=== PATIENT | male | born 1975 | race Caucasian/White ===

== ENCOUNTER 2022-05-04 07:14 | Outpatient (REF) | payer BC, SELFPAY ==
[2022-05-04 11:23] LABS: MANUAL DIFF FLAG NO
[2022-05-04 11:37] LABS: Appearance Urine Clear; Color Urine Yellow; Glucose Urine UA Negative (Negative); Leukocyte Esterase Urine Trace (Negative); Nitrite Urine Negative (Negative); PH 5.5 (5.0-9.0); UMIC TRIGGER UACC YES; Urine Blood Negative (Negative); Urine Ketones Negative (Negative); Urine Protein Negative (Neg-Trace)
[2022-05-04 11:40] LABS: Basophils Absolute Auto 0.1 X10*3/uL (0.0-0.2); Basophils Percent Auto 0.8 % (0-2); Eosinophils Absolute Auto 0.2 X10*3/uL (0.0-0.4); Eosinophils Percent Auto 2.5 % (0-4); Hematocrit 49.1 % (42.0-52.0); Hemoglobin 16.3 g/dl (14.0-18.0); Imm Gran Abs Auto 0.03 X10*3/uL (0.00-0.03); Imm Gran Pct Auto 0.4 % (0.0-0.4); Lymphocytes Absolute Auto 3.1 X10*3/uL (1.2-4.9); Lymphocytes Percent Auto 40.8 % (20-40); Mean Corpuscular HGB Conc 33.2 g/dl (31.0-36.0); Mean Corpuscular Volume 90.4 fL (80.0-98.0); Mean Platelet Volume 10.7 fL (9.4-12.4); Monocytes Absolute Auto 0.7 X10*3/uL (0.1-1.2); Monocytes Percent Auto 8.5 % (2-11); Neutrophils Absolute Auto 3.6 x10*3/uL (2.0-8.3); Platelet Count 202 X10*3/uL (160-400); Red Blood Count 5.43 X10*6/uL (4.60-5.80); Red Cell Distribution Width 12.5 % (11.0-16.0); White Blood Count 7.7 X10*3/uL (4.8-10.8)
[2022-05-04 11:43] LABS: Bacteria Urine None Seen (None Seen); Hyaline Casts Urine 0-2 /LPF (0-2); RBC Urine 0-2 /HPF (0-2); Squamous Epithelial Cell Urine 0-2 /HPF (0-2); WBC Urine 0-5 /HPF (0-5)
[2022-05-04 12:37] LABS: Alanine Aminotransferase 37 U/L (0-40); Albumin Level 4.7 g/dL (3.5-5.0); Alkaline Phosphatase 55 U/L (39-117); Anion Gap 13 (12-20); Aspartate Amino Transferase 26 U/L (5-37); Bilirubin Total 1.1 mg/dL (0.0-1.0); Blood Urea Nitrogen 13 mg/dL (9-16); Calcium 9.7 mg/dL (8.4-10.2); Carbon Dioxide 29 mmol/L (22-29); Chloride 101 mmol/L (96-108); Cholesterol 206 mg/dL; Estimated Glomerular Filt Rate > 60; Glucose Fasting 90 mg/dL (60-99); Glucose Random 88 mg/dL (60-115); HDL Cholesterol 39 mg/dL; LDL Cholesterol Calculated 130 mg/dl; Potassium 3.9 mmol/L (3.3-5.1); Prostate Specific Antigen Scr 0.31 ng/mL (<0.05-4.0); Sodium 139 mmol/L (135-145); TSH reflex Free T4 1.83 uIU/mL (0.32-4.0); Triglycerides 187 mg/dL; Vitamin D 25-OH Total 41.5 ng/mL (>30)
== END 2022-05-04 07:15 | disposition home or self-care (01) ==
LOC: HO.HMGCLDS 07:14
PROVIDERS: Absent Provider Nurse Practitioner; PCP Internal Medicine; Visit Provider Internal Medicine
DX: Z00.00 Encounter for general adult medical examination without abnormal findings (principal); Z12.5 Encounter for screening for malignant neoplasm of prostate; I10 Essential (primary) hypertension; E55.9 Vitamin D deficiency, unspecified
CPT/HCPCS: 36415; 80053; 80061; 81001; 82306; 84153; 84443; 85025

== ENCOUNTER 2022-09-19 06:43 | Day surgery (SDC) | payer BC, SELFPAY ==
[2022-08-23 12:55] VITALS: BMI 34.5
[2022-09-14 10:18] VITALS: BMI 32.7
--- NOTE | 2022-09-18 13:14 | HO.ANESPROP2 ---
Documented by User: Julia Vasquez NP 09/18/22 13:17 HPI - Anesthesia Eval Consult details Narrative: 47yo M for Colonoscopy PMFSH Active Problems Active Problems: All Active Problems (Updated 09/14/22 @ 08:31 by Porsche Jean, YEFRI) Benign essential hypertension (Acute) Obstructive sleep apnea (Acute) Annual physical exam (Acute) Allergic rhinitis (Acute) Osteoarthritis of knees, bilateral (Acute) Obesity (BMI 30-39.9) (Acute) Colon cancer screening (Acute) Pre-op examination (Acute) Mixed hyperlipidemia (Acute) Past Medical History Medical History (Updated 09/19/22 @ 07:05 by Rebekah Morrissey, YEFRI) Allergic rhinitis Benign essential hypertension Mixed hyperlipidemia LICHA on CPAP Family History Family History Father Myocardial infarction Mother Hypertension Cardiomyopathy Paroxysmal atrial fibrillation Anxiety Other No family history of mental disorder Surgical History Surgical History (Updated 09/19/22 @ 07:02 by Rebekah Morrissey RN) History of tympanoplasty of right ear Hx of skin graft Hx of tonsillectomy Social History Social History Housing: House Patient Tobacco Use Status: Never used Tobacco e-Cigarette/Vaping Use: Never Used Second Hand Smoke Exposure: No Current occupational status: employed Cognitive needs: No Hearing needs: No Vision needs: Yes Meds Allergies Allergy/AdvReac Type Severity Reaction Status Date / Time No Known Allergies Allergy Verified 09/19/22 07:02 Home Medications Medication Instructions Recorded Confirmed Last Taken Type Multi Vitamin 1 tab-cap PO DAILY 09/14/22 09/14/22 Unknown History Exam Exam Date and Time: September 18, 2022 1314 Height,Weight and Vital Signs: Height 6 ft 2 in Weight 115.666 kg Pertinent Lab Results Pertinent Lab Results: Laboratory Tests 05/04/22 05/04/22 07:20 07:20 WBC 7.7 Hgb 16.3 Hct 49.1 Plt Count 202 Sodium 139 Potassium 3.9 Chloride 101 Carbon Dioxide 29 BUN 13 Creatinine 0.95 Assessment and Plan Assessment Anesthesia Assessment: Chart Reviewed Documented by User: Rivera Yanes MD 09/19/22 17:52 [facility] Past Medical History Medical History (Updated 09/19/22 @ 07:05 by Rebekah Morrissey RN) Allergic rhinitis Benign essential hypertension Mixed hyperlipidemia LICHA on CPAP Functional capacity: independent ambulation Family History Family History Father Myocardial infarction Mother Hypertension Cardiomyopathy Paroxysmal atrial fibrillation Anxiety Other No family history of mental disorder Family history of problems with anesthesia: No Surgical History Surgical History (Updated 09/19/22 @ 07:02 by Rebekah Morrissey RN) History of tympanoplasty of right ear Hx of skin graft Hx of tonsillectomy History of Problems with Anesthesia: No Social History Social History Housing: House Patient Tobacco Use Status: Never used Tobacco e-Cigarette/Vaping Use: Never Used Second Hand Smoke Exposure: No Current occupational status: employed Cognitive needs: No Hearing needs: No Vision needs: Yes Meds Allergies Allergy/AdvReac Type Severity Reaction Status Date / Time No Known Allergies Allergy Verified 09/19/22 07:02 Home Medications Medication Instructions Recorded Confirmed Last Taken Type Multi Vitamin 1 tab-cap PO DAILY 09/14/22 09/14/22 Unknown History Exam Airway Mallampati Class: IV TM Dist: >3cm Neck ROM: Full Loose/Missing/Broken Teeth: Yes Assessment and Plan Assessment Anesthesia Assessment: Anesthesia Plan Discussed Final Anesthetic Review Family History of Problems with Anesthesia: No History of Problems with Anesthesia: No NPO: Yes ASA Class: II Final Preanesthetic Review: Meds/Allgs Chart Reviewed, Consent Obtained/Reviewed and Anes Risks/Benef Reviewed Patient Risk: Intermediate Procedure Risk: Intermediate Anesthetic Plan Anesthetic Plan: MAC: and Agree w/ Assess. and Plan Disposition: Standard PACU
--- NOTE | 2022-09-19 06:47 | MHC.SHP ---
Pre-Procedural Eval Section A Date of Service: 09/19/22 Section B Chief Complaint: Screening Relevant Family History (Specify if Yes): No Relevant Social History: None Present Medications: see Short Stay Collaborative assessment Medical History: Significant History (Obstructive sleep apnea Obesity Hypertension Allergic rhinitis Osteoarthritis of the knees) History of Previous Operations: Relevant previous surgery/procedure and date(s) (tonsils) Allergies: Allergies Allergy/AdvReac Type Severity Reaction Status Date / Time No Known Allergies Allergy Verified 05/05/22 09:41 Review of Systems Sugical H&P ROS: Negative: Constitution, Cardiovascular, Respiratory, Neurological, Psychiatric, Hem-Onc, Allergic/Immunologic, Gastrointestinal, Genitourinary, Musculoskeletal, Integumentary, Endocrine and Eyes/Ears/Nose/Throat Exam Surgical H&P Exam: Normal: HEENT, Normal: Heart, Normal: Lungs, Normal: Extremities, Normal: Abdomen, Normal: Skin and Normal: Neurological Plan Diagnosis/Plan: Unchanged I have reviewed the history and physical and performed a pertinent physical examination on my patient. No changes have occurred unless specified. Time Spent With Patient Time: Total time managing care of this patient today ____ minutes.
[2022-09-19 07:03] VITALS: BMI 32.7
[2022-09-19 07:08] VITALS: BP 152/92; PULSE 79; RESP 15; TEMP 36.3; O2SAT 96
[2022-09-19] MEDS: Lactated Ringers 1,000 ML 100 ML IVCONT (07:32)
--- NOTE | 2022-09-19 08:43 | W.PM.OPN ---
Operative Note Operative Note Date of Service: 09/19/22 Narrative: Operative Information Procedure Description: Colonoscopy Indication: screening colonoscopy Anesthesia: MAC COLONOSCOPY Instrument: Olympus variable stiffness ADULT scope 190L Colonoscopy Monitoring: Vital signs and clinical assessment, continuous EKG monitoring, Pulse oximetry, Carbon Dioxide monitoring and blood pressure monitoring were done throughout the procedure. Colon withdrawal time was 14 minutes. Procedure: The patient was placed in the left lateral decubitis position and pre-procedure medications were administered. After a digital rectal examination of the ano-rectum, the video colonoscope was inserted into the rectum and advanced through the colon to the cecum/TI. The colonoscope was slowly withdrawn in a retrograde panoramic fashion and the colon mucosa was carefully examined including a retroflexed view of the rectum. Findings and interventions are described below. Procedure Difficulty: easy Findings: Terminal Ileum-normal Cecum: 4-6 mm sessile polyp removed with cold forceps Ascending Colon: normal Transverse Colon -normal Descending Colon:normal Sigmoid Colon: normal Rectum: Retroflexion with small internal hemorrhoids, grade I, 10 mm sessile polyp in mid rectum removed with cold snare with x 2 clips applied for hemostasis Anorectum - normal Colon preparation: [place] Bowel Preparation Scale Right colon; 3 Transverse colon: 3 Left colon; 3 (0 = Unprepared colon segment with mucosa not seen due to solid stool that cannot be cleared. 1 = Portion of mucosa of the colon segment seen, but other areas of the colon segment not well seen due to staining, residual stool and/or opaque liquid. 2 = Minor amount of residual staining, small fragments of stool and/or opaque liquid, but mucosa of colon segment seen well. 3 = Entire mucosa of colon segment seen well with no residual staining, small fragments of stool or opaque liquid) Impression and Post Procedure Diagnosis: polyps internal hemorrhoids Plan: High fiber diet leaflet Avoid straining at stool, epsom salts and sitz bath, anusol supps or cream Repeat Colonoscopy in 5 years due to polyps or earlier if clinically indicated Above findings were reviewed with the patient and relevant handouts were provided if indicated.
[2022-09-19 09:29] VITALS: BP 111/63; PULSE 87; RESP 17; TEMP 36.3; O2SAT 95
[2022-09-19 09:44] VITALS: BP 120/65; PULSE 77; RESP 16; TEMP 36.3; O2SAT 96
== END 2022-09-19 10:04 | disposition home or self-care (01) ==
PROVIDERS: PCP Internal Medicine; Visit Provider Internal Medicine Gastroenterology
PROC: 0DJD8ZZ Inspection of Lower Intestinal Tract, Via Natural or Artificial Opening Endoscopic (ICD-10-PCS; CPT 45378; principal; 2022-09-19 08:30)
DX: Z12.11 Encounter for screening for malignant neoplasm of colon (principal); D12.0 Benign neoplasm of cecum; D12.8 Benign neoplasm of rectum; K64.0 First degree hemorrhoids; I10 Essential (primary) hypertension; E66.9 Obesity, unspecified; Z68.33 Body mass index [BMI] 33.0-33.9, adult; J30.9 Allergic rhinitis, unspecified; M17.0 Bilateral primary osteoarthritis of knee; G47.33 Obstructive sleep apnea (adult) (pediatric); Z99.89 Dependence on other enabling machines and devices; Z79.51 Long term (current) use of inhaled steroids; Z79.899 Other long term (current) drug therapy
CPT/HCPCS: 45385; 45380; 88305

== ENCOUNTER → 2022-09-27 08:16 | Outpatient (BNVA) | payer BC, SELFPAY | PROVIDERS: PCP Internal Medicine; Visit Provider Nurse Practitioner | DX: Z13.89 Encounter for screening for other disorder (principal) ==

== ENCOUNTER 2023-05-05 10:53 | Outpatient (REF) | payer BC, SELFPAY ==
[2023-05-05 12:51] LABS: MANUAL DIFF FLAG NO
[2023-05-05 12:56] LABS: Basophils Percent Auto 0.5 % (0-2); Eosinophils Absolute Auto 0.1 X10*3/uL (0.0-0.4); Eosinophils Percent Auto 1.1 % (0-4); Hematocrit 45.6 % (42.0-52.0); Hemoglobin 15.7 g/dl (14.0-18.0); Imm Gran Abs Auto 0.02 X10*3/uL (0.00-0.03); Imm Gran Pct Auto 0.3 % (0.0-0.4); Lymphocytes Absolute Auto 2.3 X10*3/uL (1.2-4.9); Lymphocytes Percent Auto 34.6 % (20-40); Mean Corpuscular HGB Conc 34.4 g/dl (31.0-36.0); Mean Corpuscular Hemoglobin 30.9 pg (27.0-33.0); Mean Corpuscular Volume 89.8 fL (80.0-98.0); Mean Platelet Volume 10.4 fL (9.4-12.4); Monocytes Absolute Auto 0.5 X10*3/uL (0.1-1.2); Monocytes Percent Auto 8.2 % (2-11); Neutrophils Absolute Auto 3.6 x10*3/uL (2.0-8.3); Neutrophils Percent Auto 55.3 % (45-73); Platelet Count 196 X10*3/uL (160-400); Red Blood Count 5.08 X10*6/uL (4.60-5.80); Red Cell Distribution Width 12.4 % (11.0-16.0); White Blood Count 6.5 X10*3/uL (4.8-10.8)
[2023-05-05 12:57] LABS: Appearance Urine Clear; Color Urine Yellow; Glucose Urine UA Negative (Negative); Leukocyte Esterase Urine Negative (Negative); Nitrite Urine Negative (Negative); Specific Gravity - Urine 1.025 (1.005-1.025); Urine Blood Negative (Negative); Urine Ketones Negative (Negative); Urine Protein Negative (Neg-Trace)
[2023-05-05 13:23] LABS: Alanine Aminotransferase 17 U/L (0-40); Albumin Level 4.4 g/dL (3.5-5.0); Alkaline Phosphatase 50 U/L (39-117); Anion Gap 11 (12-20); Aspartate Amino Transferase 16 U/L (5-37); Bilirubin Total 0.6 mg/dL (0.0-1.0); Blood Urea Nitrogen 17 mg/dL (9-16); Calcium 10.2 mg/dL (8.4-10.2); Carbon Dioxide 29 mmol/L (22-29); Chloride 106 mmol/L (96-108); Cholesterol 187 mg/dL (<200); Estimated Glomerular Filt Rate > 60; Glucose Fasting 92 mg/dL (60-99); HDL Cholesterol 42 mg/dL (>40); LDL Cholesterol Calculated 131 mg/dL (<100); Potassium 4.2 mmol/L (3.3-5.1); Sodium 142 mmol/L (135-145); Total Protein 6.9 g/dL (6.5-8.0); Triglycerides 74 mg/dL (<150)
[2023-05-05 13:38] LABS: TSH reflex Free T4 0.84 uIU/mL (0.32-4.0); Vitamin D 25-OH Total 90.2 ng/mL (>30)
== END 2023-05-05 10:54 | disposition home or self-care (01) ==
LOC: HO.HMGCLDS 10:53
PROVIDERS: PCP Internal Medicine; Visit Provider Internal Medicine
DX: E55.9 Vitamin D deficiency, unspecified (principal); E78.00 Pure hypercholesterolemia, unspecified; I10 Essential (primary) hypertension; R30.0 Dysuria
CPT/HCPCS: 36415; 80053; 80061; 81003; 82306; 84443; 85025

== ENCOUNTER 2023-05-09 08:40 | Outpatient (AMB) | payer BC, SELFPAY ==
[2023-05-09 08:43] VITALS: BP 124/80; PULSE 71; O2SAT 97; BMI 32.2
--- NOTE | 2023-05-09 08:43 | A.OFFPC_ITS ---
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 Accompanied by: Self / Same As Patient Allergies No Known Allergies Allergy (Verified 05/09/23 09:11) Medication List - Last Reconciled 05/09/23 by Adolph Weston MD fluticasone propionate 50 mcg/actuation 2 sprays intranasal DAILY PRN 30 days lisinopril-hydrochlorothiazide 20-12.5 mg 1 tab PO DAILY 90 days loratadine 10 mg PO DAILY PRN 90 days [Multi Vitamin 1 tab-cap PO DAILY] Tobacco use date assessed: 05/09/23 Dental Screening Dental Screen Date: 05/09/23 Did you have a dental visit in the last 12 months?: Yes Did you have a dental problem in the last 6 months where you did not have access to dental care?: No Was dental information given to patient?: Patient has dentist HPI HTN, hyperlipidemia, LICHA HPI Details Patient comes in today for his follow up visit States that he feels okay He denies any headaches or dizziness Denies any chest pains, no SOB No nausea/vomiting, no abdominal pain No change in bowel habits noted Would like to have his Rx sent in again to make sure that the pharmacy gets them as a 90-days' supply instead of a monthly Rx Had his follow up labs done a few days ago - to discuss his results [facility] Medical History LICHA on CPAP Mixed hyperlipidemia Allergic rhinitis Benign essential hypertension Surgical History Hx of skin graft Hx of tonsillectomy History of tympanoplasty of right ear Family History Father Myocardial infarction Mother Hypertension Cardiomyopathy Paroxysmal atrial fibrillation Anxiety Other No family history of mental disorder Social History Housing: House Patient Tobacco Use Status: Never used Tobacco e-Cigarette/Vaping Use: Never Used Second Hand Smoke Exposure: No Current occupational status: employed Cognitive needs: No Hearing needs: No Vision needs: Yes Questionnaire PHQ-9 Over the last 2 weeks, how often have you been bothered by any of the following problems? 1. Little interest or pleasure in doing things: not at all 2. Feeling down, depressed, or hopeless: not at all 3. Trouble falling or staying asleep, or sleeping too much: not at all 4. Feeling tired or having little energy: not at all 5. Poor appetite or overeating: not at all 6. Feeling bad about yourself - or that you are a failure or have let yourself or your family down: not at all 7. Trouble concentrating on things, such as reading the newspaper or watching television: not at all 8. Moving or speaking so slowly that other people could have noticed. Or the opposite - being so fidgety or restless that you have been moving around a lot more than usual: not at all 9. Thoughts that you would be better off or of hurting yourself in some way: not at all Total score: 0 Depression Screening Interpretation: Negative Depression Screening Done: Yes [id number] - PHQ-9 Billing: Yes Source: Developed by Drs. Erickson De Jesus, Trish Peoples, Isra Torres and colleagues, with an educational sandi from [employer]. Thrive Questionnaire Date Thrive assessed: 05/09/23 I am a: Patient What is your living situation today?: I have a steady place to live Within the past 12 months, did the food you bought not last and you didn't have the money to get more?: Never true Within the past 12 months, did you worry whether your food would run out before you got money to buy more?: Never true Do you have trouble paying for medicines?: No Do you have trouble getting transportation to medical appointments?: No Do you have trouble paying your heating and electricity bill?: No Do you have trouble taking care of your child, family member or friend?: No Do you have trouble with day-to-day activities such as bathing, preparing meals, shopping, managing finances, etc.?: No Are you currently unemployed and looking for a job?: No Are you interested in more education?: No Please select the resources that you would like help with: None Currently or been in a relationship where the following occur: no concerns reported AUDIT C Alcohol Use Questionnaire (AUDIT-C) 1. How often do you have a drink containing alcohol?: 4 or more times a week 2. How many drinks containing alcohol do you have on a typical day when you are drinking?: 3 or 4 3. How often do you have six or more drinks on one occasion?: Never Total Score: 5 Score Reviewed/Action Taken: Yes BRANDY-7 AMB Questionnaire BRANDY-7 Date BRANDY - 7 assessed: 05/09/23 Feeling nervous, anxious, or on edge: 0 = Not at all Not being able to stop or control worryin = Not at all Worrying too much about different things: 0 = Not at all Trouble relaxin = Not at all Being so restless that it is hard to sit still: 0 = Not at all Becoming easily annoyed or irritable: 0 = Not at all Feeling afraid as if something awful might happen: 0 = Not at all Total BRANDY-7 score (0-4 normal; 5-9 mild; 10-14 moderate; 15-21 severe): 0 Source: Developed by Drs. Erickson De Jesus, Trish Peoples, Isra Torres and colleagues, with an educational sandi from [employer]. Review of Systems Const Denies chills, Denies fatigue, Denies fever(s) and Denies headache(s) ENT Denies dysphagia, Denies dizziness, Denies otalgia, Denies headache(s), Denies neck pain, Denies odynophagia and Denies sore throat Card Denies chest pain, Denies palpitations and Denies dyspnea Resp Denies cough and Denies dyspnea GI Denies abdominal pain, Denies constipation, Denies dysphagia, Denies heartburn, Denies diarrhea, Denies nausea, Denies odynophagia and Denies vomiting Denies dysuria, Denies nocturia and Denies urinary frequency Musc Denies neck pain Skin/Breast Denies rash Neuro Denies dizziness and Denies headache(s) Endo Denies fatigue and Denies palpitations Physical exam (Primary Care) Vital Signs: Last Vital Signs Pulse 71 05/09/23 08:43 BP 124/80 05/09/23 08:43 Pulse Ox 97 05/09/23 08:43 Oxygen Delivery Method Room Air 05/09/23 08:43 BMI result Body Mass Index 32.2 Tobacco/Smoking Status: Tobacco use Status Tobacco use date assessed 05/09/23 05/09/23 08:50 Patient Tobacco Use Status Never used Tobacco 05/09/23 08:50 e-Cigarette/Vaping Use Never Used 05/09/23 08:50 PHQ-9: PHQ-9 Score PHQ-9: Total score 0 05/09/23 08:50 Depression Screening Interpretation: Negative Thrive Assessment: Date of Thrive Assessment Date Thrive assessed 05/09/23 05/09/23 08:50 Currently or been in a relationship where the following occur: no concerns reported Const General: no acute distress and alert HENMT Ears: TM's normal bilaterally and EAC's normal Throat: Yes posterior oropharynx normal and Yes tonsils normal (no TP congestion) Neck Neck: Yes no lymphadenopathy and Yes supple Resp Auscultation: clear to auscultation bilaterally, no rales and no wheezes Cardio Rate: regular rate Rhythm: regular rhythm Heart sounds: no murmurs GI Palpation (GI): Soft to palpation and nontender Auscultation: normal bowel sounds Skin General skin exam: no rashes or lesions noted Extrem General: Yes no clubbing, cyanosis or edema Results Reviewed Results Reviewed: Laboratory Tests 05/05/23 11:02 WBC 6.5 Hgb 15.7 Hct 45.6 Plt Count 196 Sodium 142 Potassium 4.2 Creatinine 0.96 Estimated GFR > 60 Fasting Glucose 92 Calcium 10.2 AST 16 ALT 17 Triglycerides 74 Cholesterol 187 LDL Cholesterol, Calc 131 H HDL Cholesterol 42 25-OH Vitamin D Total 90.2 TSH 0.84 Ur Specific [place] 1.025 Urine Protein Negative Urine Glucose (UA) Negative Urine Blood Negative Assessment and Plan Assessment & Plan (1) Benign essential hypertension: Code(s): I10 - Essential (primary) hypertension Plan: Reinforced low sodium diet - goal is systolic BP of at least 130 mm or less Continue Lisinopril-HCT 20-12.5 mg QD - Rx refilled for 90 days with 3 refills Patient is again reminded to continue monitoring his blood pressure regularly (2) Mixed hyperlipidemia: Comment: borderline-no meds Code(s): E78.2 - Mixed hyperlipidemia Plan: Results of his labs done a few days ago reviewed and discussed with patient - is advised that his serum triglyceride and total cholesterol levels have improved significantly from previous although his LDL cholesterol is still borderline high and mostly unchanged Reinforced low cholesterol diet; is encouraged again on regular exercises to help increase his HDL cholesterol level Will recheck his fasting lipids and labs in 6 months for follow up (3) Obstructive sleep apnea: Code(s): G47.33 - Obstructive sleep apnea (adult) (pediatric) Plan: Continue using his CPAP device when sleeping at night daily Was diagnosed with LICHA about 5 years ago and has been using his CPAP device when he sleeps at night daily since - using the CPAP has helped him a lot, as his previous symptoms of fatigue and daytime somnolence have all improved significantly with the use of his CPAP device (4) Allergic rhinitis: Code(s): J30.9 - Allergic rhinitis, unspecified Qualifiers: Allergic rhinitis trigger: pollen Allergic rhinitis seasonality: seasonal Qualified Code(s): J30.1 - Allergic rhinitis due to pollen Plan: Continue Fluticasone 50 mcg nasal spray QD PRN and Loratadine 10 mg QD PRN - Rx refilled (5) Osteoarthritis of knees, bilateral: Code(s): M17.0 - Bilateral primary osteoarthritis of knee Qualifiers: Osteoarthritis type: unspecified Qualified Code(s): M17.0 - Bilateral primary osteoarthritis of knee Plan: States that his knee pains have been slowly getting worse over the years - he was apparently advised a few years ago that he has osteoarthritis of both knees, which he thinks are a result of his playing football for several years when he was younger Patient will contact orthopedics to schedule an appointment if his knee pain gets worse (6) Obesity (BMI 30-39.9): Code(s): E66.9 - Obesity, unspecified Plan: Reinforced diet/exercise as tolerated/lose weight States that he has been staying on a [place] diet for the past few months now Plan To return in 6 months for his next annual physical examination Orders: Orders Lipid Panel 6 Months E78.00 - Pure hypercholesterolemia, unspecified TSH reflex Free T4 6 Months E78.00 - Pure hypercholesterolemia, unspecified UA CC w/rflx Micro + Cult 6 Months R30.0 - Dysuria Prostate Specific Antigen Scr 6 Months Z00.00 - Encounter for general adult medical examination without abnormal findings Complete Blood Count Auto Diff 6 Months I10 - Essential (primary) hypertension Comprehensive [place]. Panel Fast 6 Months E78.00 - Pure hypercholesterolemia, unspecified Vitamin D 25-OH Total 6 Months E55.9 - Vitamin D deficiency, unspecified Medications: Refilled loratadine 10 mg PO DAILY 90 days PRN 90 tabs 3RF allergy symptoms lisinopril-hydrochlorothiazide 20-12.5 mg 1 tab PO DAILY 90 days 90 tabs 3RF I10 - Essential (primary) hypertension Coding Level of Care Code Est Pt Level 4 (44943) Diagnoses Benign essential hypertension I10 Mixed hyperlipidemia E78.2 Obstructive sleep apnea G47.33 Seasonal allergic rhinitis due to pollen J30.1 Allergic rhinitis trigger: pollen Allergic rhinitis seasonality: seasonal Osteoarthritis of both knees, unspecified osteoarthritis type M17.0 Osteoarthritis type: unspecified Obesity (BMI 30-39.9) E66.9
== END 2023-05-09 09:30 | disposition home or self-care (01) ==
PROVIDERS: PCP Internal Medicine; Visit Provider Internal Medicine
DX: I10 Essential (primary) hypertension (principal); E78.2 Mixed hyperlipidemia; G47.33 Obstructive sleep apnea (adult) (pediatric); J30.1 Allergic rhinitis due to pollen; M17.0 Bilateral primary osteoarthritis of knee
CPT/HCPCS: 99214

== ENCOUNTER 2023-11-30 14:20 | Outpatient (REF) | payer BC, SELFPAY ==
[2023-11-30 15:52] LABS: MANUAL DIFF FLAG NO
[2023-11-30 16:05] LABS: Appearance Urine Clear; Color Urine Yellow; Glucose Urine UA Negative (Negative); Leukocyte Esterase Urine Negative (Negative); Nitrite Urine Negative (Negative); PH 5.5 (5.0-9.0); Specific Gravity - Urine 1.025 (1.005-1.025); Urine Blood Negative (Negative); Urine Ketones Negative (Negative); Urine Protein Negative (Neg-Trace)
[2023-11-30 16:07] LABS: Basophils Absolute Auto 0.1 X10*3/uL (0.0-0.2); Basophils Percent Auto 0.6 % (0-2); Eosinophils Absolute Auto 0.1 X10*3/uL (0.0-0.4); Eosinophils Percent Auto 1.1 % (0-4); Hematocrit 47.8 % (42.0-52.0); Hemoglobin 16.6 g/dl (14.0-18.0); Imm Gran Abs Auto 0.03 X10*3/uL (0.00-0.03); Imm Gran Pct Auto 0.4 % (0.0-0.4); Lymphocytes Absolute Auto 2.4 X10*3/uL (1.2-4.9); Lymphocytes Percent Auto 27.8 % (20-40); Mean Corpuscular HGB Conc 34.7 g/dl (31.0-36.0); Mean Corpuscular Volume 89.2 fL (80.0-98.0); Mean Platelet Volume 10.2 fL (9.4-12.4); Monocytes Absolute Auto 0.5 X10*3/uL (0.1-1.2); Monocytes Percent Auto 6.4 % (2-11); Neutrophils Absolute Auto 5.4 x10*3/uL (2.0-8.3); Neutrophils Percent Auto 63.7 % (45-73); Platelet Count 211 X10*3/uL (160-400); Red Blood Count 5.36 X10*6/uL (4.60-5.80); Red Cell Distribution Width 12.5 % (11.0-16.0); White Blood Count 8.5 X10*3/uL (4.8-10.8)
[2023-11-30 16:17] LABS: Alanine Aminotransferase 28 U/L (0-40); Albumin Level 4.9 g/dL (3.5-5.0); Alkaline Phosphatase 60 U/L (39-117); Anion Gap 14 (12-20); Aspartate Amino Transferase 22 U/L (5-37); Bilirubin Total 0.9 mg/dL (0.0-1.0); Blood Urea Nitrogen 19 mg/dL (9-16); Calcium 10.4 mg/dL (8.4-10.2); Carbon Dioxide 27 mmol/L (22-29); Chloride 106 mmol/L (96-108); Cholesterol 218 mg/dL (<200); Estimated Glomerular Filt Rate > 60; Glucose Fasting 99 mg/dL (60-99); HDL Cholesterol 51 mg/dL (>40); LDL Cholesterol Calculated 139 mg/dL (<100); Potassium 3.8 mmol/L (3.3-5.1); Sodium 143 mmol/L (135-145); Total Protein 7.7 g/dL (6.5-8.0); Triglycerides 144 mg/dL (<150)
[2023-11-30 16:33] LABS: TSH reflex Free T4 1.01 uIU/mL (0.32-4.0); Vitamin D 25-OH Total 93.2 ng/mL (>30)
[2023-11-30 16:36] LABS: Prostate Specific Antigen Scr 0.41 ng/mL (<0.05-4.0)
== END 2023-11-30 14:21 | disposition home or self-care (01) ==
LOC: HO.HMGCLDS 14:20
PROVIDERS: PCP Internal Medicine; Visit Provider Internal Medicine
DX: Z00.00 Encounter for general adult medical examination without abnormal findings (principal); E78.00 Pure hypercholesterolemia, unspecified; R30.0 Dysuria; I10 Essential (primary) hypertension; E55.9 Vitamin D deficiency, unspecified; Z12.5 Encounter for screening for malignant neoplasm of prostate
CPT/HCPCS: 36415; 80053; 80061; 81003; 82306; 84153; 84443; 85025

== ENCOUNTER 2023-12-05 09:04 | Outpatient (AMB) | payer BC, SELFPAY ==
[2023-12-05 09:08] VITALS: BP 138/86; PULSE 74; O2SAT 98; BMI 32.2
--- NOTE | 2023-12-05 09:08 | MHC.PC.OV ---
Vital Signs 12/05/23 09:08 12/05/23 09:52 Height 6 ft 2 in Weight 251 lb 0.6 oz BMI 32.2 BP 138/86 140/88 H Blood Pressure Location Lt brachial Lt brachial Position Sitting Sitting Pulse 74 Pulse Source Pulse Oximeter Pulse Oximetry (%) 98 Oxygen Delivery Method Room Air Intake Visit Reasons: Physical Exam Intake Note: Patient is here today for a physical. Community Development Technician Required: No Allergies No Known Allergies Allergy (Verified 12/05/23 09:46) Medication List - Last Reconciled 12/05/23 by Adolph Weston MD fluticasone propionate 50 mcg/actuation 2 sprays intranasal DAILY PRN 30 days lisinopril-hydrochlorothiazide 20-12.5 mg 1 tab PO DAILY 90 days loratadine 10 mg PO DAILY PRN 90 days [Multi Vitamin 1 tab-cap PO DAILY] Tobacco use date assessed: 12/05/23 Dental Screening Dental Screen Date: 12/05/23 Did you have a dental visit in the last 12 months?: Yes Did you have a dental problem in the last 6 months where you did not have access to dental care?: No Was dental information given to patient?: Patient has dentist HPI Physical Exam HPI Details Patient comes in today for his annual physical examination States that he feels okay He denies any headaches or dizziness Denies any chest pains, no SOB No nausea/vomiting, no abdominal pain No change in bowel habits noted Denies any acute urinary symptoms He had his follow up labs done last week - to discuss his results He is up-to-date with his colon cancer screening - had his colonoscopy done last year (2022) and has been recommended to get repeat colonoscopy done in 5 years (2027) [facility] Medical History (Updated 12/05/23 @ 09:47 by Adolph Weston MD) LICHA on CPAP Mixed hyperlipidemia Allergic rhinitis Benign essential hypertension Surgical History (Updated 12/05/23 @ 09:48 by Adolph Weston MD) Hx of colonoscopy Hx of skin graft Hx of tonsillectomy History of tympanoplasty of right ear Family History Father Myocardial infarction Mother Hypertension Cardiomyopathy Paroxysmal atrial fibrillation Anxiety Other No family history of mental disorder Social History Housing: House Patient Tobacco Use Status: Never used Tobacco e-Cigarette/Vaping Use: Never Used Second Hand Smoke Exposure: No Current occupational status: employed Cognitive needs: No Hearing needs: No Vision needs: Yes Questionnaire PHQ-9 Over the last 2 weeks, how often have you been bothered by any of the following problems? 1. Little interest or pleasure in doing things: not at all 2. Feeling down, depressed, or hopeless: not at all 3. Trouble falling or staying asleep, or sleeping too much: not at all 4. Feeling tired or having little energy: not at all 5. Poor appetite or overeating: not at all 6. Feeling bad about yourself - or that you are a failure or have let yourself or your family down: not at all 7. Trouble concentrating on things, such as reading the newspaper or watching television: not at all 8. Moving or speaking so slowly that other people could have noticed. Or the opposite - being so fidgety or restless that you have been moving around a lot more than usual: not at all 9. Thoughts that you would be better off or of hurting yourself in some way: not at all Total score: 0 Depression Screening Interpretation: Negative Depression Screening Done: Yes 54394 - PHQ-9 Billing: Yes Source: Developed by Drs. Erickson De Jesus, Trish Peoples, Isra Torres and colleagues, with an educational sandi from [employer] Thrive Questionnaire Date Thrive assessed: 12/05/23 I am a: Patient What is your living situation today?: I have a steady place to live Within the past 12 months, did the food you bought not last and you didn't have the money to get more?: Never true Within the past 12 months, did you worry whether your food would run out before you got money to buy more?: Never true Do you have trouble paying for medicines?: No Do you have trouble getting transportation to medical appointments?: No Do you have trouble paying your heating and electricity bill?: No Do you have trouble taking care of your child, family member or friend?: No Do you have trouble with day-to-day activities such as bathing, preparing meals, shopping, managing finances, etc.?: No Are you currently unemployed and looking for a job?: No Are you interested in more education?: No Please select the resources that you would like help with: None Currently or been in a relationship where the following occur: No concerns reported THRIVE Score: 0 AUDIT C Alcohol Use Questionnaire (AUDIT-C) 1. How often do you have a drink containing alcohol?: 4 or more times a week 2. How many drinks containing alcohol do you have on a typical day when you are drinking?: 3 or 4 3. How often do you have six or more drinks on one occasion?: Never Total Score: 5 Score Reviewed/Action Taken: Yes BRANDY-7 AMB Questionnaire BRANDY-7 Date BRANDY - 7 assessed: 12/05/23 Feeling nervous, anxious, or on edge: 0 = Not at all Not being able to stop or control worryin = Not at all Worrying too much about different things: 0 = Not at all Trouble relaxin = Not at all Being so restless that it is hard to sit still: 0 = Not at all Becoming easily annoyed or irritable: 0 = Not at all Feeling afraid as if something awful might happen: 0 = Not at all Total BRANDY-7 score (0-4 normal; 5-9 mild; 10-14 moderate; 15-21 severe): 0 Source: Developed by Drs. Erickson De Jesus, Trish Peoples, Isra Torres and colleagues, with an educational sandi from [employer] BRANDY-7 Assessment Billing BRANDY-7 Assessment Tool: BRANDY-7 Assessment 36462 Review of Systems Const Denies chills, Denies fatigue, Denies fever(s), Denies headache(s), Denies malaise and Denies weakness Eyes Denies blurry vision, Denies change in vision, Denies irritation and Denies itchy eyes ENT Denies dysphagia, Denies dizziness, Denies otalgia, Denies headache(s), Denies nasal congestion, Denies neck pain, Denies odynophagia and Denies sore throat Card Denies chest pain, Denies rapid heart rate, Denies irregular heart rhythm, Denies palpitations and Denies dyspnea Resp Denies chest congestion, Denies cough, Denies dyspnea and Denies wheezing GI Denies abdominal pain, Denies bloating, Denies constipation, Denies dysphagia, Denies heartburn, Denies diarrhea, Denies nausea, Denies odynophagia and Denies vomiting Denies hematuria, Denies difficulty urinating, Denies dysuria, Denies urinary frequency and Denies urinary urgency Musc Denies back pain, Denies arthralgias, Denies joint swelling, Denies muscle weakness and Denies neck pain Skin/Breast Denies change in pigmentation, Denies lesions, Denies rash and Denies unusual bruising Neuro Denies dizziness, Denies headache(s), Denies paresthesias and Denies weakness Endo Denies fatigue and Denies palpitations Aller/Immun Denies itchy eyes and Denies wheezing Physical exam (Primary Care) Vital Signs: Last Vital Signs Pulse 74 12/05/23 09:08 BP 138/86 12/05/23 09:08 Pulse Ox 98 12/05/23 09:08 Oxygen Delivery Method Room Air 12/05/23 09:08 BMI result Body Mass Index 32.2 Tobacco/Smoking Status: Tobacco use Status Tobacco use date assessed 12/05/23 12/05/23 09:09 Patient Tobacco Use Status Never used Tobacco 12/05/23 09:09 e-Cigarette/Vaping Use Never Used 12/05/23 09:09 PHQ-9: PHQ-9 Score PHQ-9: Total score 0 12/05/23 09:09 Depression Screening Interpretation: Negative Thrive Assessment: Date of Thrive Assessment Date Thrive assessed 12/05/23 12/05/23 09:09 Currently or been in a relationship where the following occur: No concerns reported Const General: no acute distress, alert and awake Orientation/consciousness: patient oriented x3 HENMT Head: Yes normocephalic and Yes atraumatic Ears: external ears normal, TM's normal bilaterally and EAC's normal General nose exam: No nasal discharge present Face and sinus: Yes normal facial exam and Yes sinuses nontender Teeth and gingiva: dentition normal Throat: Yes posterior oropharynx normal and Yes tonsils normal (no TP congestion) Eyes Eyelids: Yes eyelids normal Conjunctivae: conjunctivae normal Pupils: Equal, round and reactive pupils present EOM: EOMs intact bilaterally Neck Neck: Yes no lymphadenopathy and Yes supple Thyroid: Thyroid normal Resp Auscultation: clear to auscultation bilaterally, no rales and no wheezes Cardio Rate: regular rate Rhythm: regular rhythm Heart sounds: no murmurs GI Palpation (GI): Soft to palpation, nontender and No hepatosplenomegaly present Auscultation: normal bowel sounds General: Yes no CVA tenderness Back/Spine/Pelvis Back: no CVA tenderness Thoracic/Lumbar Spine: thoracic and lumbar spine normal to inspection Skin Lesions: no lesions Rashes: no rashes Neuro General: patient oriented x3, moves all extremities, no focal motor deficits and CN's II-XI intact bilaterally Cranial nerves: Yes Equal, round and reactive pupils present Cognition (Neuro): normal cognition Gait exam (Neuro): Normal gait present Extrem General: Yes no clubbing, cyanosis or edema Results Reviewed Results Reviewed: Laboratory Tests 11/30/23 14:25 WBC 8.5 Hgb 16.6 Hct 47.8 Plt Count 211 Sodium 143 Potassium 3.8 Creatinine 0.94 Estimated GFR > 60 Fasting Glucose 99 Calcium 10.4 H AST 22 ALT 28 Triglycerides 144 Cholesterol 218 H LDL Cholesterol, Calc 139 H HDL Cholesterol 51 PSA Screen 0.41 25-OH Vitamin D Total 93.2 TSH 1.01 Ur Specific [place] 1.025 Urine Protein Negative Urine Glucose (UA) Negative Urine Blood Negative Urine Nitrite Negative Ur Leukocyte Esterase Negative Assessment and Plan Assessment & Plan (1) Annual physical exam: Code(s): Z00.00 - Encounter for general adult medical examination without abnormal findings Plan: Results of his labs done last week reviewed and discussed with patient He is currently up-to-date with his cancer screenings - had his colonoscopy done last year (2022) with Dr. Link and has been recommended to get repeat colonoscopy done in 5 years due to polyps and family Hx (2) Mixed hyperlipidemia: Comment: borderline-no meds Code(s): E78.2 - Mixed hyperlipidemia Plan: Have advised patient that both his serum triglyceride level and LDL cholesterol level went up from previous on his recent labs - TG is now at 144 mg/dl and LDL at 139 mg/dl - patient admits to non-compliance with his diet over the recent 28 of November weekend Reinforced low cholesterol diet He prefers not to take any statins for his cholesterol as much as possible Have advised that he can try getting some OTC Red Yeast Rice and that these are more herbal/natural remedies that may help lower his cholesterol Will recheck his fasting lipids and labs in 6 months for follow up (3) Benign essential hypertension: Code(s): I10 - Essential (primary) hypertension Plan: Reinforced low sodium diet - goal is systolic BP of at least 130 mm or less Advised that his blood pressure is higher than recommended at present Continue Lisinopril-HCT 20-12.5 mg QD for now - advised that his BP may go back down if he starts exercising and lose some weight Patient is reminded to continue monitoring his blood pressure regularly (4) Obstructive sleep apnea: Code(s): G47.33 - Obstructive sleep apnea (adult) (pediatric) Plan: Continue using his CPAP device when sleeping at night daily Was diagnosed with LICHA about 5 years ago and has been using his CPAP device when he sleeps at night daily since - using the CPAP has helped him a lot, as his previous symptoms of fatigue and daytime somnolence have all improved significantly with the use of his CPAP device (5) Allergic rhinitis: Code(s): J30.9 - Allergic rhinitis, unspecified Qualifiers: Allergic rhinitis trigger: pollen Allergic rhinitis seasonality: seasonal Qualified Code(s): J30.1 - Allergic rhinitis due to pollen Plan: Continue Fluticasone 50 mcg nasal spray QD PRN Can also take OTC Loratadine 10 mg QD PRN additionally (6) Osteoarthritis of knees, bilateral: Code(s): M17.0 - Bilateral primary osteoarthritis of knee Qualifiers: Osteoarthritis type: unspecified Qualified Code(s): M17.0 - Bilateral primary osteoarthritis of knee Plan: States that his knee pains have been slowly getting worse over the years; was apparently advised a few years ago that he has osteoarthritis of both knees, which he thinks are a result of his playing football for several years when he was younger Patient will contact orthopedics to schedule an appointment if his knee pain gets worse but states that they are still manageable currently (7) Obesity (BMI 30-39.9): Code(s): E66.9 - Obesity, unspecified Plan: Reinforced diet/exercise as tolerated/lose weight Plan Follow up in 6 months Orders: Orders Lipid Panel 6 Months E78.00 - Pure hypercholesterolemia, unspecified Comprehensive Tobias. Panel Fast 6 Months E78.00 - Pure hypercholesterolemia, unspecified Coding Level of Care Code Est Pt Prev Care 40-64y(79217) Diagnoses Annual physical exam Z00.00 Mixed hyperlipidemia E78.2 Benign essential hypertension I10 Obstructive sleep apnea G47.33 Seasonal allergic rhinitis due to pollen J30.1 Allergic rhinitis trigger: pollen Allergic rhinitis seasonality: seasonal Osteoarthritis of both knees, unspecified osteoarthritis type M17.0 Osteoarthritis type: unspecified Obesity (BMI 30-39.9) E66.9 Additional Codes BRANDY-7 Assessment Billing - BRANDY-7 Assessment Tool: BRANDY-7 Assessment [id number] ([id number])
[2023-12-05 09:52] VITALS: BP 140/88
== END 2023-12-05 09:59 | disposition home or self-care (01) ==
PROVIDERS: PCP Internal Medicine; Visit Provider Internal Medicine
DX: Z00.00 Encounter for general adult medical examination without abnormal findings (principal); E78.2 Mixed hyperlipidemia; I10 Essential (primary) hypertension; G47.33 Obstructive sleep apnea (adult) (pediatric); J30.1 Allergic rhinitis due to pollen; M17.0 Bilateral primary osteoarthritis of knee
CPT/HCPCS: 99396

== ENCOUNTER 2024-06-04 15:13 | Outpatient (REF) | payer BC, SELFPAY ==
[2024-06-04 16:52] LABS: Alanine Aminotransferase 30 U/L (0-40); Albumin Level 4.8 g/dL (3.5-5.0); Alkaline Phosphatase 56 U/L (39-117); Anion Gap 17 (12-20); Aspartate Amino Transferase 22 U/L (5-37); Bilirubin Total 0.9 mg/dL (0.0-1.0); Blood Urea Nitrogen 15 mg/dL (9-16); Carbon Dioxide 29 mmol/L (22-29); Chloride 103 mmol/L (96-108); Cholesterol 219 mg/dL (<200); Estimated Glomerular Filt Rate > 60; Glucose Fasting 89 mg/dL (60-99); HDL Cholesterol 44 mg/dL (>40); LDL Cholesterol Calculated 148 mg/dL (<100); Potassium 4.5 mmol/L (3.3-5.1); Sodium 144 mmol/L (135-145); Total Protein 7.5 g/dL (6.5-8.0); Triglycerides 136 mg/dL (<150)
== END 2024-06-04 15:14 | disposition home or self-care (01) ==
LOC: HO.HMGCLDS 15:13
PROVIDERS: Internal Medicine; PCP Physician Assistant; Visit Provider Physician Assistant
DX: E78.00 Pure hypercholesterolemia, unspecified (principal)
CPT/HCPCS: 36415; 80053; 80061

== ENCOUNTER 2024-06-10 15:28 | Outpatient (AMB) | payer BC, SELFPAY ==
[2024-06-10 15:32] VITALS: BP 136/78; PULSE 75; O2SAT 96; BMI 32.0
--- NOTE | 2024-06-10 15:32 | MHC.PC.OV ---
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: No Accompanied by: Self / Same As Patient Allergies No Known Allergies Allergy (Verified 06/10/24 15:54) Medication List - Last Reconciled 06/10/24 by Adolph Weston MD fluticasone propionate 50 mcg/actuation 2 sprays intranasal DAILY PRN 30 days lisinopril-hydrochlorothiazide 20-12.5 mg 1 tab PO DAILY 90 days loratadine 10 mg PO DAILY PRN 90 days [Multi Vitamin 1 tab-cap PO DAILY] Tobacco use date assessed: 06/10/24 Dental Screening Dental Screen Date: 06/10/24 Did you have a dental visit in the last 12 months?: Yes Did you have a dental problem in the last 6 months where you did not have access to dental care?: No Was dental information given to patient?: Patient has dentist HPI hyperlipidemia HPI Details Patient comes in today for his follow-up visit States that he feels okay He denies any headaches or dizziness Denies any chest pains, no shortness of breath No nausea/vomiting, no abdominal pain No change in bowel habits noted Admits to experiencing increased anxiety for a while now - 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, like he is 'on edge', and thinks that this is also affecting his blood pressure and making it go up frequently and is considering that maybe controlling his anxiety better will help his blood pressure as well Needs his Fluticasone nasal spray Rx refilled He had his follow-up labs done last week - to discuss his results [facility] Medical History Anxiety LICHA on CPAP Mixed hyperlipidemia Allergic rhinitis Benign essential hypertension Surgical History Hx of colonoscopy Hx of skin graft Hx of tonsillectomy History of tympanoplasty of right ear Family History Father Myocardial infarction Mother Hypertension Cardiomyopathy Paroxysmal atrial fibrillation Anxiety Other No family history of mental disorder Social History (Updated 06/16/24 @ 03:16 by Adolph Weston MD) Housing: House Patient Tobacco Use Status: Never used Tobacco e-Cigarette/Vaping Use: Never Used Second Hand Smoke Exposure: No service: No Current occupational status: employed 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 1. Little interest or pleasure in doing things: not at all 2. Feeling down, depressed, or hopeless: not at all 3. Trouble falling or staying asleep, or sleeping too much: not at all 4. Feeling tired or having little energy: not at all 5. Poor appetite or overeating: not at all 6. Feeling bad about yourself - or that you are a failure or have let yourself or your family down: not at all 7. Trouble concentrating on things, such as reading the newspaper or watching television: not at all 8. Moving or speaking so slowly that other people could have noticed. Or the opposite - being so fidgety or restless that you have been moving around a lot more than usual: not at all 9. Thoughts that you would be better off or of hurting yourself in some way: not at all Total score: 0 Depression Screening Interpretation: Negative Depression Screening Done: Yes 43907 - PHQ-9 Billing: Yes Source: Developed by Drs. Erickson De Jesus, Trish Peoples, Isra Torres and colleagues, with an educational sandi from [employer]. Thrive Questionnaire Date Thrive assessed: 06/10/24 I am a: Patient What is your living situation today?: I have a steady place to live Within the past 12 months, did the food you bought not last and you didn't have the money to get more?: Never true Within the past 12 months, did you worry whether your food would run out before you got money to buy more?: Never true Do you have trouble paying for medicines?: No Do you have trouble getting transportation to medical appointments?: No Do you have trouble paying your heating and electricity bill?: No Do you have trouble taking care of your child, family member or friend?: No Do you have trouble with day-to-day activities such as bathing, preparing meals, shopping, managing finances, etc.?: No Are you currently unemployed and looking for a job?: No Are you interested in more education?: No Please select the resources that you would like help with: None Currently or been in a relationship where the following occur: No concerns reported THRIVE Score: 0 AUDIT C Alcohol Use Questionnaire (AUDIT-C) 1. How often do you have a drink containing alcohol?: Monthly or less 2. How many drinks containing alcohol do you have on a typical day when you are drinking?: 3 or 4 3. How often do you have six or more drinks on one occasion?: Less than monthly Total Score: 3 Score Reviewed/Action Taken: Yes BRANDY-7 AMB Questionnaire BRANDY-7 Date BRANDY - 7 assessed: 06/10/24 Feeling nervous, anxious, or on edge: 0 = Not at all Not being able to stop or control worryin = Not at all Worrying too much about different things: 0 = Not at all Trouble relaxin = Not at all Being so restless that it is hard to sit still: 0 = Not at all Becoming easily annoyed or irritable: 0 = Not at all Feeling afraid as if something awful might happen: 0 = Not at all Total BRANDY-7 score (0-4 normal; 5-9 mild; 10-14 moderate; 15-21 severe): 0 Source: Developed by Drs. Erickson De Jesus, Trish Peoples, Isra Torres and colleagues, with an educational sandi from [employer]. BRANDY-7 Assessment Billing BRANDY-7 Assessment Tool: BRANDY-7 Assessment 59226 Review of Systems Const Denies chills, Denies fatigue, Denies fever(s) and Denies headache(s) ENT Denies dysphagia, Denies dizziness, Denies otalgia, Denies headache(s), Denies neck pain, Denies odynophagia and Denies sore throat Card Denies chest pain, Denies palpitations and Denies dyspnea Resp Denies chest congestion, Denies cough and Denies dyspnea GI Denies abdominal pain, Denies constipation, Denies dysphagia, Denies heartburn, Denies diarrhea, Denies nausea, Denies odynophagia and Denies vomiting Denies difficulty urinating, Denies dysuria and Denies urinary frequency Musc Denies back pain, Denies arthralgias and Denies neck pain Skin/Breast Denies rash Neuro Denies dizziness and Denies headache(s) Psych Reports anxiety (see HPI) Endo Denies fatigue and Denies palpitations Physical exam (Primary Care) Vital Signs: Last Vital Signs Pulse 75 06/10/24 15:32 BP 136/78 06/10/24 15:32 Pulse Ox 96 06/10/24 15:32 Oxygen Delivery Method Room Air 06/10/24 15:32 BMI result Body Mass Index 32.0 Tobacco/Smoking Status: Tobacco use Status Tobacco use date assessed 06/10/24 06/10/24 15:37 Patient Tobacco Use Status Never used Tobacco 06/10/24 15:37 e-Cigarette/Vaping Use Never Used 06/10/24 15:37 PHQ-9: PHQ-9 Score PHQ-9: Total score 0 06/10/24 16:13 Depression Screening Interpretation: Negative Thrive Assessment: Date of Thrive Assessment Date Thrive assessed 06/10/24 06/10/24 15:37 Currently or been in a relationship where the following occur: No concerns reported Const General: no acute distress and alert HENMT Ears: TM's normal bilaterally and EAC's normal Throat: Yes posterior oropharynx normal and Yes tonsils normal (no TP congestion) Neck Neck: Yes supple and No lymphadenopathy Thyroid: Thyroid normal Resp Auscultation: clear to auscultation bilaterally, no rales and no wheezes Cardio Rate: regular rate Rhythm: regular rhythm Heart sounds: no murmurs GI Palpation (GI): Soft to palpation and nontender Auscultation: normal bowel sounds General: Yes no CVA tenderness Back/Spine/Pelvis Back: no CVA tenderness Skin Rashes: no rashes Extrem General: Yes no clubbing, cyanosis or edema Results Reviewed Results Reviewed: Laboratory Tests 06/04/24 15:17 Sodium 144 Potassium 4.5 Creatinine 0.86 Estimated GFR > 60 Fasting Glucose 89 Calcium 10.0 AST 22 ALT 30 Triglycerides 136 Cholesterol 219 H LDL Cholesterol, Calc 148 H HDL Cholesterol 44 Coding Level of Care Code Est Pt Level 4 (68036) Diagnoses Mixed hyperlipidemia E78.2 Benign essential hypertension I10 Obstructive sleep apnea G47.33 Seasonal allergic rhinitis due to pollen J30.1 Allergic rhinitis trigger: pollen Allergic rhinitis seasonality: seasonal Osteoarthritis of both knees, unspecified osteoarthritis type M17.0 Osteoarthritis type: unspecified Anxiety F41.9 Obesity (BMI 30-39.9) E66.9 Additional Codes BRANDY-7 Assessment Billing - BRANDY-7 Assessment Tool: BRANDY-7 Assessment [id number] ([id number]) PHQ-9 - 99308 - PHQ-9 Billing: Yes ([id number]) Assessment & Plan Assessment & Plan (1) Mixed hyperlipidemia: Comment: borderline-no meds Code(s): E78.2 - Mixed hyperlipidemia Category: Medical Plan: Results of his labs done last week reviewed and discussed with patient - he is cautioned that his cholesterol levels have increased again slightly from previous, with his LDL cholesterol now at 148 mg/dL and total cholesterol at 219 mg/dL Reinforced low cholesterol diet Patient states that he has tried taking OTC Red Yeast Rice at our recommendation at his last visit but this does not appear to be helping much with his cholesterol He still prefers not to take any statins for his cholesterol as much as possible and will try to continue working on his diet for now Will recheck his fasting lipids and labs again in 6 months for follow up (2) Benign essential hypertension: Code(s): I10 - Essential (primary) hypertension Category: Medical Plan: Reinforced low sodium diet - goal is systolic BP of at least 130 mm or less Continue Lisinopril-HCT 20-12.5 mg QD for now He is advised again that his BP may improve if he starts exercising and lose some weight Patient is reminded to continue monitoring his blood pressure regularly (3) Obstructive sleep apnea: Code(s): G47.33 - Obstructive sleep apnea (adult) (pediatric) Category: Medical Plan: Continue using his CPAP device when sleeping at night daily He was diagnosed with LICHA about 5 years ago and has been using his CPAP device when he sleeps at night daily since He feels that using the CPAP has helped him a lot, as his previous symptoms of fatigue and daytime somnolence have all improved significantly with the use of his CPAP device (4) Allergic rhinitis: Code(s): J30.9 - Allergic rhinitis, unspecified Category: Medical Qualifiers: Allergic rhinitis trigger: pollen Allergic rhinitis seasonality: seasonal Qualified Code(s): J30.1 - Allergic rhinitis due to pollen Plan: Continue Fluticasone 50 mcg nasal spray QD PRN - Rx refilled He also takes OTC Loratadine 10 mg QD PRN additionally (5) Osteoarthritis of knees, bilateral: Code(s): M17.0 - Bilateral primary osteoarthritis of knee Category: Medical Qualifiers: Osteoarthritis type: unspecified Qualified Code(s): M17.0 - Bilateral primary osteoarthritis of knee Plan: Patient states that his knee pains have been slowly getting worse over the years He was apparently advised a few years ago that he has osteoarthritis of both knees, which he thinks are a result of his playing football for several years when he was younger Patient will contact orthopedics to schedule an appointment if his knee pain gets worse but states that they are still manageable at present (6) Anxiety: Code(s): F41.9 - Anxiety disorder, unspecified Category: Medical Plan: Will start him on a trial of Sertraline 25 mg QD - he is advised that this has to be taken daily for it to be effective (7) Obesity (BMI 30-39.9): Code(s): E66.9 - Obesity, unspecified Category: Medical Plan: Reinforced diet/exercise as tolerated/lose weight Plan To return in 6 months for his next annual physical examination Orders: Orders Comprehensive [place]. Panel Fast 6 Months E78.00 - Pure hypercholesterolemia, unspecified, Z00.00 - Encounter for general adult medical examination without abnormal findings UA CC w/rflx Micro + Cult 6 Months R30.0 - Dysuria, Z00.00 - Encounter for general adult medical examination without abnormal findings Prostate Specific Antigen Scr 6 Months Z00.00 - Encounter for general adult medical examination without abnormal findings Complete Blood Count Auto Diff 6 Months D64.9 - Anemia, unspecified, Z00.00 - Encounter for general adult medical examination without abnormal findings Lipid Panel 6 Months E78.00 - Pure hypercholesterolemia, unspecified, Z00.00 - Encounter for general adult medical examination without abnormal findings TSH reflex Free T4 6 Months E78.00 - Pure hypercholesterolemia, unspecified, Z00.00 - Encounter for general adult medical examination without abnormal findings Vitamin D 25-OH Total 6 Months E55.9 - Vitamin D deficiency, unspecified, Z00.00 - Encounter for general adult medical examination without abnormal findings Medications: New sertraline 25 mg PO DAILY 30 days 30 tabs 3RF Refilled fluticasone propionate 50 mcg/actuation administer into each nostril 2 sprays intranasal DAILY 30 days PRN 16 grams 5RF allergy symptoms loratadine 10 mg PO DAILY 90 days PRN 90 tabs 3RF allergy symptoms
== END 2024-06-10 16:15 | disposition home or self-care (01) ==
PROVIDERS: PCP Internal Medicine; Visit Provider Internal Medicine
DX: E78.2 Mixed hyperlipidemia (principal); E66.9 Obesity, unspecified; Z68.32 Body mass index [BMI] 32.0-32.9, adult; I10 Essential (primary) hypertension; G47.33 Obstructive sleep apnea (adult) (pediatric); J30.1 Allergic rhinitis due to pollen; M17.0 Bilateral primary osteoarthritis of knee; F41.9 Anxiety disorder, unspecified

== ENCOUNTER → 2024-06-10 15:28 | Outpatient (BNVA) | payer BC, SELFPAY | PROVIDERS: PCP Internal Medicine; Visit Provider Internal Medicine | DX: E78.2 Mixed hyperlipidemia (principal); I10 Essential (primary) hypertension; G47.33 Obstructive sleep apnea (adult) (pediatric); J30.1 Allergic rhinitis due to pollen; M17.0 Bilateral primary osteoarthritis of knee; F41.9 Anxiety disorder, unspecified; E66.9 Obesity, unspecified; Z79.899 Other long term (current) drug therapy; Z99.89 Dependence on other enabling machines and devices | CPT/HCPCS: 96127 ==

== ENCOUNTER 2024-12-15 14:27 | Outpatient (REF) | payer BC, SELFPAY ==
[2024-12-15 16:17] LABS: MANUAL DIFF FLAG NO
[2024-12-15 16:24] LABS: Hematocrit 45.5 % (42.0-52.0); Hemoglobin 15.6 g/dl (14.0-18.0); Imm Gran Abs Auto 0.02 X10*3/uL (0.00-0.03); Imm Gran Pct Auto 0.3 % (0.0-0.4); Lymphocytes Absolute Auto 2.3 X10*3/uL (1.2-4.9); Mean Corpuscular HGB Conc 34.3 g/dl (31.0-36.0); Mean Corpuscular Hemoglobin 30.8 pg (27.0-33.0); Mean Corpuscular Volume 89.9 fL (80.0-98.0); NRBC Abs Auto 0.000 X10*3/uL (0.0-0.012); NRBC Pct Auto 0.0 /100WBC (0.0-0.2); Platelet Count 208 X10*3/uL (160-400); Red Blood Count 5.06 X10*6/uL (4.60-5.80); White Blood Count 7.8 X10*3/uL (4.8-10.8)
[2024-12-15 16:32] LABS: Appearance Urine Turbid; Glucose Urine UA Negative (Negative); PH 5.5 (5.0-9.0); Specific Gravity - Urine 1.025 (1.005-1.025)
[2024-12-15 16:41] LABS: Alanine Aminotransferase 27 U/L (0-40); Albumin Level 4.9 g/dL (3.5-5.0); Alkaline Phosphatase 59 U/L (39-117); Anion Gap 14 (12-20); Aspartate Amino Transferase 25 U/L (5-37); Blood Urea Nitrogen 16 mg/dL (9-16); Calcium 9.6 mg/dL (8.4-10.2); Carbon Dioxide 25 mmol/L (22-29); Chloride 108 mmol/L (96-108); Cholesterol 227 mg/dL (<200); Estimated Glomerular Filt Rate > 60; HDL Cholesterol 47 mg/dL (>40); Potassium 4.2 mmol/L (3.3-5.1); Sodium 143 mmol/L (135-145); Total Protein 7.2 g/dL (6.5-8.0); Triglycerides 116 mg/dL (<150)
== END 2024-12-15 14:28 | disposition home or self-care (01) ==
LOC: HO.HMGCLDS 14:27
PROVIDERS: PCP Internal Medicine; Visit Provider Internal Medicine
DX: Z00.00 Encounter for general adult medical examination without abnormal findings (principal); E78.00 Pure hypercholesterolemia, unspecified; D64.9 Anemia, unspecified; E55.9 Vitamin D deficiency, unspecified; R30.0 Dysuria; Z12.5 Encounter for screening for malignant neoplasm of prostate
CPT/HCPCS: 36415; 80053; 80061; 81003; 82306; 84153; 84443; 85025

== ENCOUNTER 2024-12-19 08:43 | Outpatient (AMB) | payer BC, SELFPAY ==
[2024-12-19 08:48] VITALS: BP 130/80; PULSE 87; O2SAT 96; BMI 31.6
--- NOTE | 2024-12-19 08:48 | MHC.PC.OV ---
Vital Signs 12/19/24 08:48 Height 6 ft 2 in Weight 246 lb 4 oz BMI 31.6 BP 130/80 Blood Pressure Location Lt brachial Position Sitting Pulse 87 Pulse Source Pulse Oximeter Pulse Oximetry (%) 96 Oxygen Delivery Method Room Air Intake Visit Reasons: pe Floor Space Allocator Required: No Accompanied by: Self / Same As Patient Allergies No Known Allergies Allergy (Verified 12/19/24 09:05) Medication List - Last Reconciled 12/19/24 by Adolph Weston MD fluticasone propionate 50 mcg/actuation 2 sprays intranasal DAILY PRN 30 days lisinopril-hydrochlorothiazide 20-12.5 mg 1 tab PO DAILY 90 days loratadine 10 mg PO DAILY PRN 90 days [Multi Vitamin 1 tab-cap PO DAILY] sertraline 25 mg PO DAILY 30 days Tobacco use date assessed: 12/19/24 Dental Screening Dental Screen Date: 12/19/24 Did you have a dental visit in the last 12 months?: Yes Did you have a dental problem in the last 6 months where you did not have access to dental care?: No Was dental information given to patient?: Patient has dentist HPI pe HPI Details Patient comes in today for his annual physical examination States that he feels well but has been experiencing some left testicular pain lately States that he has been riding his motorcycle a lot lately He has noticed some pinkish discoloration to his semen once recently He denies any dysuria or any other acute urinary symptoms Denies any increased low back pain lately He denies any headaches or dizziness Denies any chest pains, no SOB No nausea/vomiting, no abdominal pain No change in bowel habits noted He denies any acute urinary symptoms He had his follow up labs done a few days ago - to discuss his results He is up-to-date with his colon cancer screening - he had his colonoscopy done a couple of years ago in 2022 and was recommended to get his repeat colonoscopy done in 5 years (2027) [facility] Medical History Anxiety LICHA on CPAP Mixed hyperlipidemia Allergic rhinitis Benign essential hypertension Surgical History Hx of colonoscopy Hx of skin graft Hx of tonsillectomy History of tympanoplasty of right ear Family History Father Myocardial infarction Mother Hypertension Cardiomyopathy Paroxysmal atrial fibrillation Anxiety Other No family history of mental disorder Social History Housing: House Patient Tobacco Use Status: Never used Tobacco e-Cigarette/Vaping Use: Never Used Second Hand Smoke Exposure: No service: No Current occupational status: employed 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 1. Little interest or pleasure in doing things: not at all 2. Feeling down, depressed, or hopeless: not at all 3. Trouble falling or staying asleep, or sleeping too much: not at all 4. Feeling tired or having little energy: not at all 5. Poor appetite or overeating: not at all 6. Feeling bad about yourself - or that you are a failure or have let yourself or your family down: not at all 7. Trouble concentrating on things, such as reading the newspaper or watching television: not at all 8. Moving or speaking so slowly that other people could have noticed. Or the opposite - being so fidgety or restless that you have been moving around a lot more than usual: not at all 9. Thoughts that you would be better off or of hurting yourself in some way: not at all Total score: 0 Depression Screening Interpretation: Negative Depression Screening Done: Yes 48068 - PHQ-9 Billing: Yes Source: Developed by Drs. Erickson De Jesus, Trish Peoples, Isra Torres and colleagues, with an educational sandi from [employer]. Thrive Questionnaire Date Thrive assessed: 12/19/24 I am a: Patient What is your living situation today?: I choose not to answer this question Within the past 12 months, did the food you bought not last and you didn't have the money to get more?: I choose not to answer this question Within the past 12 months, did you worry whether your food would run out before you got money to buy more?: I choose not to answer this question Do you have trouble paying for medicines?: I choose not to answer this question Do you have trouble getting transportation to medical appointments?: No Do you have trouble paying your heating and electricity bill?: No Do you have trouble taking care of your child, family member or friend?: No Do you have trouble with day-to-day activities such as bathing, preparing meals, shopping, managing finances, etc.?: No Are you currently unemployed and looking for a job?: No Are you interested in more education?: No Please select the resources that you would like help with: None Currently or been in a relationship where the following occur: No concerns reported THRIVE Score: 0 AUDIT C Alcohol Use Questionnaire (AUDIT-C) 1. How often do you have a drink containing alcohol?: 2-4 times a month 2. How many drinks containing alcohol do you have on a typical day when you are drinking?: 3 or 4 3. How often do you have six or more drinks on one occasion?: Less than monthly Total Score: 4 Score Reviewed/Action Taken: Yes BRANDY-7 AMB Questionnaire BRANDY-7 Date BRANDY - 7 assessed: 12/19/24 Feeling nervous, anxious, or on edge: 0 = Not at all Not being able to stop or control worryin = Not at all Worrying too much about different things: 0 = Not at all Trouble relaxin = Not at all Being so restless that it is hard to sit still: 0 = Not at all Becoming easily annoyed or irritable: 0 = Not at all Feeling afraid as if something awful might happen: 0 = Not at all Total BRANDY-7 score (0-4 normal; 5-9 mild; 10-14 moderate; 15-21 severe): 0 Source: Developed by Drs. Erickson De Jesus, Trish Peoples, Isra Torres and colleagues, with an educational sandi from [employer]. Review of Systems Const Denies chills, Denies fatigue, Denies fever(s), Denies headache(s), Denies malaise and Denies weakness Eyes Denies blurry vision, Denies change in vision, Denies irritation and Denies itchy eyes ENT Denies dysphagia, Denies dizziness, Denies otalgia, Denies headache(s), Denies nasal congestion, Denies neck pain, Denies odynophagia and Denies sore throat Card Denies chest pain, Denies rapid heart rate, Denies irregular heart rhythm, Denies palpitations and Denies dyspnea Resp Denies chest congestion, Denies cough, Denies dyspnea and Denies wheezing GI Denies abdominal pain, Denies bloating, Denies constipation, Denies dysphagia, Denies heartburn, Denies diarrhea, Denies nausea, Denies odynophagia and Denies vomiting Denies hematuria, Denies difficulty urinating, Denies dysuria, Reports testicular pain (left side, on and off - see HPI), Denies urinary frequency and Denies urinary urgency Musc Reports back pain (on and off over both sides of the lower back), Denies arthralgias, Denies joint swelling, Denies muscle weakness and Denies neck pain Skin/Breast Denies change in pigmentation, Denies lesions, Denies rash and Denies unusual bruising Neuro Denies dizziness, Denies headache(s), Denies paresthesias and Denies weakness Psych Reports anxiety (better controlled on Rx) Endo Denies fatigue and Denies palpitations Aller/Immun Denies itchy eyes and Denies wheezing Physical exam (Primary Care) Vital Signs: Last Vital Signs Pulse 87 12/19/24 08:48 BP 130/80 12/19/24 08:48 Pulse Ox 96 12/19/24 08:48 Oxygen Delivery Method Room Air 12/19/24 08:48 BMI result Body Mass Index 31.6 Tobacco/Smoking Status: Tobacco use Status Tobacco use date assessed 12/19/24 12/19/24 08:52 Patient Tobacco Use Status Never used Tobacco 12/19/24 08:52 e-Cigarette/Vaping Use Never Used 12/19/24 08:52 PHQ-9: PHQ-9 Score PHQ-9: Total score 0 12/19/24 08:52 Depression Screening Interpretation: Negative Thrive Assessment: Date of Thrive Assessment Date Thrive assessed 12/19/24 12/19/24 08:52 Currently or been in a relationship where the following occur: No concerns reported Const General: no acute distress, alert and awake Orientation/consciousness: patient oriented x3 HENMT Head: Yes normocephalic and Yes atraumatic Ears: external ears normal, TM's normal bilaterally and EAC's normal General nose exam: No nasal discharge present Face and sinus: Yes normal facial exam and Yes sinuses nontender Teeth and gingiva: dentition normal Throat: Yes posterior oropharynx normal and Yes tonsils normal (no TP congestion) Eyes Eyelids: Yes eyelids normal Conjunctivae: conjunctivae normal Pupils: Equal, round and reactive pupils present EOM: EOMs intact bilaterally Neck Neck: Yes no lymphadenopathy and Yes supple Thyroid: Thyroid normal Resp Auscultation: clear to auscultation bilaterally, no rales and no wheezes Cardio Rate: regular rate Rhythm: regular rhythm Heart sounds: no murmurs GI Palpation (GI): Soft to palpation, nontender and No hepatosplenomegaly present Auscultation: normal bowel sounds General: Yes no CVA tenderness Back/Spine/Pelvis Back: no CVA tenderness Thoracic/Lumbar Spine: paraspinal muscle tenderness bilaterally (mild) in the mid lumbar and in the lower lumbar and lumbar spinal tenderness (mild) Skin Lesions: no lesions Rashes: no rashes Neuro General: patient oriented x3, moves all extremities, no focal motor deficits and CN's II-XI intact bilaterally Cranial nerves: Yes Equal, round and reactive pupils present Cognition (Neuro): normal cognition Gait exam (Neuro): Normal gait present Extrem General: Yes no clubbing, cyanosis or edema Results Reviewed Results Reviewed: Laboratory Tests 12/15/24 12/15/24 14:32 14:35 WBC 7.8 Hgb 15.6 Hct 45.5 Plt Count 208 Sodium 143 Potassium 4.2 Creatinine 0.90 Estimated GFR > 60 Fasting Glucose 91 Calcium 9.6 AST 25 ALT 27 Triglycerides 116 Cholesterol 227 H LDL Cholesterol, Calc 157 H HDL Cholesterol 47 PSA Screen 0.36 25-OH Vitamin D Total 125.5 TSH 1.26 Ur Specific [place] 1.025 Urine Protein Negative Urine Glucose (UA) Negative Urine Blood Negative Urine Nitrite Negative Ur Leukocyte Esterase Negative Coding Level of Care Code Est Pt Prev Care 40-64y(17046) Diagnoses Annual physical exam Z00.00 Mixed hyperlipidemia E78.2 Benign essential hypertension I10 Obstructive sleep apnea G47.33 Seasonal allergic rhinitis due to pollen J30.1 Allergic rhinitis trigger: pollen Allergic rhinitis seasonality: seasonal Left testicular pain N50.812 Osteoarthritis of both knees, unspecified osteoarthritis type M17.0 Osteoarthritis type: unspecified Anxiety F41.9 Obesity (BMI 30-39.9) E66.9 Additional Codes PHQ-9 - 82458 - PHQ-9 Billing: Yes ([id number]) Assessment & Plan Assessment & Plan (1) Annual physical exam: Code(s): Z00.00 - Encounter for general adult medical examination without abnormal findings Category: Medical Plan: Results of his labs done a few days aog reviewed and discussed with patient He is currently up-to-date with his colon cancer screening - he had his colonoscopy done a couple of years ago in 2022 and was recommended to get his repeat colonoscopy done in 5 years (2027 (2) Mixed hyperlipidemia: Comment: borderline-no meds Code(s): E78.2 - Mixed hyperlipidemia Category: Medical Plan: He is again cautioned that his cholesterol levels have increased again slightly from previous, with his LDL cholesterol now at 157 mg/dL and total cholesterol at 227 mg/dL Reinforced low cholesterol diet Patient has tried taking OTC Red Yeast Rice in the past without any improvement of his cholesterol levels He still prefers not to take any statins for his cholesterol as much as possible and will try to continue working on his diet for now Will recheck his fasting lipids and labs again in 6 months for follow up (3) Benign essential hypertension: Code(s): I10 - Essential (primary) hypertension Category: Medical Plan: Reinforced low sodium diet - goal is systolic BP of at least 130 mm or less Continue Lisinopril-HCT 20-12.5 mg QD for now Patient is reminded to continue monitoring his blood pressure regularly (4) Obstructive sleep apnea: Code(s): G47.33 - Obstructive sleep apnea (adult) (pediatric) Category: Medical Plan: Continue using his CPAP device when sleeping at night daily He was diagnosed with LICHA about 5 years ago and has been using his CPAP device when he sleeps at night daily since He feels that using the CPAP has helped him a lot, as his previous symptoms of fatigue and daytime somnolence have all improved significantly with the use of his CPAP device (5) Allergic rhinitis: Code(s): J30.9 - Allergic rhinitis, unspecified Category: Medical Qualifiers: Allergic rhinitis trigger: pollen Allergic rhinitis seasonality: seasonal Qualified Code(s): J30.1 - Allergic rhinitis due to pollen Plan: Continue Fluticasone 50 mcg nasal spray QD PRN - Rx refilled He also takes OTC Loratadine 10 mg QD PRN additionally (6) Left testicular pain: Code(s): N50.812 - Left testicular pain Category: Medical Plan: Will send patient for left testicular US for further evaluation (7) Osteoarthritis of knees, bilateral: Code(s): M17.0 - Bilateral primary osteoarthritis of knee Category: Medical Qualifiers: Osteoarthritis type: unspecified Qualified Code(s): M17.0 - Bilateral primary osteoarthritis of knee Plan: Patient states that his knee pains have been slowly getting worse over the years He was apparently advised a few years ago that he has osteoarthritis of both knees, which he thinks are a result of his playing football for several years when he was younger Patient will contact orthopedics to schedule an appointment if his knee pain gets worse but states that they are still manageable at present (8) Anxiety: Code(s): F41.9 - Anxiety disorder, unspecified Category: Medical Plan: He was started on a trial of Sertraline 25 mg QD earlier this year for his anxiety Patient feels that this has been helping but he feels that he could still feel a little better as he still has occasional bouts of anxiety spells Will go ahead and increase his Sertraline to 50 mg QD (9) Obesity (BMI 30-39.9): Code(s): E66.9 - Obesity, unspecified Category: Medical Plan: Reinforced diet/exercise as tolerated/lose weight Plan Follow up in 6 months Orders: Orders Comprehensive [place]. Panel Fast 6 Months E78.00 - Pure hypercholesterolemia, unspecified Lipid Panel 6 Months E78.00 - Pure hypercholesterolemia, unspecified Vitamin D 25-OH Total 6 Months E55.9 - Vitamin D deficiency, unspecified US scrotum Today N50.812 - Left testicular pain Medications: Changed From sertraline 25 mg PO DAILY 30 days 30 tabs 3RF To sertraline 50 mg PO DAILY 90 tabs 1RF 90 days
--- OUTSIDE RECORDS SUMMARY | 2024-12-19 08:54 | XMS_ITS ---
Author Name [facility] Organization Unknown Care Team Organization Name Specialty Phone Email Start Date End Da te [facility] Termed, PROVIDER Primary Care 04/04/202212/26
== END 2024-12-19 09:40 | disposition home or self-care (01) ==
LOC: HO.HMCH 08:44
PROVIDERS: PCP Internal Medicine; Visit Provider Internal Medicine
DX: Z00.00 Encounter for general adult medical examination without abnormal findings (principal); E78.2 Mixed hyperlipidemia; E66.9 Obesity, unspecified; Z68.31 Body mass index [BMI] 31.0-31.9, adult; I10 Essential (primary) hypertension; G47.33 Obstructive sleep apnea (adult) (pediatric); J30.1 Allergic rhinitis due to pollen; N50.812 Left testicular pain; M17.0 Bilateral primary osteoarthritis of knee; F41.9 Anxiety disorder, unspecified

== ENCOUNTER → 2024-12-19 08:43 | Outpatient (BNVA) | payer BC, SELFPAY | PROVIDERS: PCP Internal Medicine; Visit Provider Internal Medicine | DX: Z00.00 Encounter for general adult medical examination without abnormal findings (principal); E78.2 Mixed hyperlipidemia; I10 Essential (primary) hypertension; G47.33 Obstructive sleep apnea (adult) (pediatric); J30.1 Allergic rhinitis due to pollen; N50.812 Left testicular pain; M17.0 Bilateral primary osteoarthritis of knee; F41.9 Anxiety disorder, unspecified; E66.9 Obesity, unspecified; Z68.31 Body mass index [BMI] 31.0-31.9, adult | CPT/HCPCS: 96127 ==

== ENCOUNTER 2024-12-29 02:45 | Emergency (ER) | payer BC, SELFPAY ==
[2024-12-29] VITALS (7 sets, daily range): BP systolic 122–147; BP diastolic 78–87; PULSE 56–80; RESP 11–18; TEMP -17.7–36.7; O2SAT 95–99; BMI 31.5
--- NOTE | ~2024-12-29 | CT_ITS ---
CLINICAL HISTORY: Left flank pain Exam: CT abdomen and pelvis without IV contrast Comparison: None provided Findings: The lack of intravenous contrast hampers the evaluation of solid organs and the ability to detect and characterize soft tissue abnormalities. Please see separate CT chest report from same date. Liver is normal in size, mild diffuse steatosis. Too small to characterize hypodensities of left hepatic lobe. Gallbladder, spleen, pancreas, adrenal glands, kidneys, ureters, bladder, reproductive organs are unremarkable. GI tract demonstrates nothing unusual, normal appendix. Minimal atherosclerotic calcification of the aorta and iliac arteries. No lymphadenopathy. No ascites or pneumoperitoneum. Unremarkable abdominopelvic wall. Degenerative changes of thoracolumbar spine, more conspicuous L4-5 and L5-S1 degenerative disc disease. No acute fracture or traumatic malalignment. Impression: No acute finding. This document has been electronically signed by: Nannette Enriquez MD on 12/29/2024 08:27:55
--- NOTE | ~2024-12-29 | XR_ITS ---
EXAMINATION: XR CHEST CLINICAL INFORMATION: syncope COMPARISON: None available. TECHNIQUE: 2 views of the chest were obtained. FINDINGS: Mild prominence of the interstitial markings. Bilateral reticular pulmonary pattern. No consolidation, pleural effusion or pneumothorax. Cardiomediastinal silhouette size is normal. S-shaped curvature of the thoracolumbar spine. Small marginal osteophyte formation and endplate sclerosis throughout the axial skeleton. XR/XR chest 2V IMPRESSION: Mild interstitial lung edema versus acute small airway inflammatory processes. Electronically signed by: Sergio Márquez MD 12/29/2024 07:58 AM EDT
--- NOTE | ~2024-12-29 | CT_ITS ---
CLINICAL HISTORY: syncope, elevated d-dimer Exam: CTA chest with IV contrast, 3D postprocessing Comparison: None provided Findings: Adequate contrast opacification of the pulmonary arteries without filling defects. Normal thoracic aorta. Heart size is top-normal. No pericardial effusion. Mild left coronary artery calcification. No lymphadenopathy. No actionable thyroid nodule. Imaged lower neck, chest wall are unremarkable. Mosaic attenuation of the bilateral lower lobes, probably accentuated by expiration. No acute infiltrates, pleural effusion or pneumothorax. Patent central airway. No acute fracture or traumatic malalignment. Mild degenerative changes of the thoracic spine. Please see separate CT abdomen and pelvis report. Impression: No pulmonary embolism or acute finding. This document has been electronically signed by: Nannette Enriquez MD on 12/29/2024 08:50:13
--- NOTE | ~2024-12-29 | CT_ITS ---
CLINICAL HISTORY: syncope, head strike CT head without contrast Comparison: None Findings: No acute hemorrhage, acute major vascular distribution infarct, intracranial mass, midline shift or hydrocephalus. No extra-axial fluid collection. Visualized paranasal sinuses and mastoid air cells normal. Orbits unremarkable. The cranium appears intact. Marked nasal septal deviation to the right with bony spur. Superficial soft tissue is unremarkable. Impression: 1. No acute intracranial finding. This document has been electronically signed by: Nannette Enriquez MD on 12/29/2024 08:27:53
--- NOTE | 2024-12-29 03:06 | ECG_ITS ---
Test Reason : Syncopal episode Blood Pressure : */* mmHG Vent. Rate : 67 BPM Atrial Rate : 67 BPM P-R Int : 168 ms QRS Dur : 92 ms QT Int : 412 ms P-R-T Axes : 63 42 38 degrees QTcB Int : 435 ms Artifact in tracing Normal sinus rhythm Normal ECG No previous ECGs available Referred By: Generic ED Physician Electronically Signed By: SARAI PANIAGUA
[2024-12-29 03:22] LABS: MANUAL DIFF FLAG NO
[2024-12-29 03:23] LABS: Hematocrit 41.2 % (42.0-52.0); Hemoglobin 14.5 g/dl (14.0-18.0); Imm Gran Abs Auto 0.03 X10*3/uL (0.00-0.03); Imm Gran Pct Auto 0.4 % (0.0-0.4); Lymphocytes Absolute Auto 2.5 X10*3/uL (1.2-4.9); Mean Corpuscular HGB Conc 35.2 g/dl (31.0-36.0); Mean Corpuscular Hemoglobin 31.2 pg (27.0-33.0); Mean Corpuscular Volume 88.6 fL (80.0-98.0); NRBC Abs Auto 0.000 X10*3/uL (0.0-0.012); NRBC Pct Auto 0.0 /100WBC (0.0-0.2); Platelet Count 183 X10*3/uL (160-400); Red Blood Count 4.65 X10*6/uL (4.60-5.80); White Blood Count 8.1 X10*3/uL (4.8-10.8)
[2024-12-29 03:48] LABS: Troponin-I High Sensitivity < 2.7 ng/L (<3.5-35.0)
[2024-12-29 03:52] LABS: Alanine Aminotransferase 9 U/L (0-40); Albumin Level 2.7 g/dL (3.5-5.0); Alkaline Phosphatase 34 U/L (39-117); Anion Gap 9 (12-20); Aspartate Amino Transferase 19 U/L (5-37); Blood Urea Nitrogen 16 mg/dL (9-16); Calcium 5.5 mg/dL (8.4-10.2); Carbon Dioxide 17 mmol/L (22-29); Chloride 123 mmol/L (96-108); Creatinine Clr Calc Pharmacy 198.6; Estimated Glomerular Filt Rate > 60; Potassium 2.3 mmol/L (3.3-5.1); Sodium 147 mmol/L (135-145); Total Protein 4.1 g/dL (6.5-8.0)
--- NOTE | 2024-12-29 04:05 | PC.NURSE ---
critical results given to provider tati- amparo+ 2.3 CA 5.5.
[2024-12-29] MEDS: Calcium Gluconate/NaCl,Iso-Osm 2 GM/100 ML PLAST..BAG IV (04:14)
--- NOTE | 2024-12-29 04:14 | ED.GENADULT ---
HPI - General Adult General Chief complaint: General Medical Stated complaint: Lft Flank Pain / Syncopal Episode Time Seen by Provider: 12/29/24 04:14 Source: patient and EMS Mode of arrival: EMS Limitations: no limitations History of Present Illness ED Provider: Dr. Jolie Garcia HPI narrative: 49-year-old male with a history of anxiety, hypertension presenting with left flank pain, syncopal episode that occurred immediately prior to arrival. Patient states that he has been dealing with some left flank pain for the last several days and when he got up to go to work [place], he thinks he may have passed out. He has a contusion overlying the left cheek bone and some pain in his face. Does not recall passing out. Received Toradol and saline from EMS that relief. Describes the pain as ?dull stabbing pain?. No reported fever. No hematuria. Does note that a couple of weeks ago he noticed some pink blood in his urine and was seen at his primary care doctor's office. At that time, he had some left testicular pain but his doctor reported that his urine was ?clean?. Denies associated chest pain or difficulty breathing. Had an episode of diarrhea when he arrived in the emergency department but denies hematochezia or melena. No known sick contacts. No questionable food intake. Has never passed out before. Of note, family history of early onset heart disease and heart attack in his father before the age of 60. Related Data Home Medications ?Medication ?Instructions ?Recorded ?Confirmed Multi Vitamin 1 tab-cap PO DAILY 09/14/22 12/19/24 Previous Rx's ?Medication ?Instructions ?Recorded lisinopril 20 1 tab PO DAILY 90 days #90 tabs 05/25/24 mg-hydrochlorothiazide 12.5 mg tablet fluticasone propionate 50 2 spray intranasal DAILY PRN 06/10/24 mcg/actuation nasal allergy symptoms 30 days #16 grams spray,suspension loratadine 10 mg tablet 10 mg PO DAILY PRN allergy 07/02/24 symptoms 90 days #90 tabs sertraline 50 mg tablet 50 mg PO DAILY 90 days #90 tabs 12/19/24 cyclobenzaprine 10 mg tablet 10 mg PO TID PRN pain #14 tabs 12/29/24 ibuprofen 400 mg tablet 400 mg PO Q6H PRN pain #20 tabs 12/29/24 Allergies Allergy/AdvReac Type Severity Reaction Status Date / Time No Known Allergies Allergy Verified 12/29/24 03:01 Review of Systems Review of Systems: as per HPI, full review of systems performed and negative but for the above mentioned pertinent positives and negatives. [facility] Past Medical History Attestation statement: The following information was validated with the patient. 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 Source: old records reviewed and nursing notes reviewed Medical History Anxiety LICHA on CPAP Mixed hyperlipidemia Allergic rhinitis Benign essential hypertension Surgical History Hx of colonoscopy Hx of skin graft Hx of tonsillectomy History of tympanoplasty of right ear Family History Family History Father Myocardial infarction Mother Hypertension Cardiomyopathy Paroxysmal atrial fibrillation Anxiety Other No family history of mental disorder Social History Social History Housing: House Patient Tobacco Use Status: Never used Tobacco Smoked in Last 30 Days: No e-Cigarette/Vaping Use: Never Used Second Hand Smoke Exposure: No Use of substances other than those prescribed or required for medical reasons: No Advance Directives: No Advance Directives Information Provided: No Do you have a plan to hurt others: No Plan service: No Current occupational status: employed 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 SKIN: Normal skin color for ethnicity, warm, dry, no rashes noted. HEENT: Normocephalic, atraumatic, no stridor, dry mucous membranes, dentition intact, EOMI, PERRLA. NECK: Soft, supple, full ROM, midline structures nontender, no step-offs, no deformities, no lymphadenopathy. CHEST: Heart regular rhythm, no murmurs, symmetric chest rise and fall. PULMONARY: Clear to auscultation bilaterally, diminished at the bases, no labored breathing, no wheezes/rhales/rhonchi. ABDOMINAL: Soft, nondistended, left flank tenderness to percussion without rebound or guarding, no palpable masses, positive bowel sounds in all quadrants. : Deferred. MUSCULOSKELETAL: Normal tone, full range of motion, no deformities, no peripheral edema, no midline spine tenderness or step-offs. NEURO: Alert and oriented x3, CN II through XII intact, equal strength and sensation bilateral upper and lower extremities, no focal neurologic deficits. PSYCHIATRIC: Flat affect, fluid speech, good eye contact and appropriate demeanor. Vital Signs: Vital Signs - 24 hr 12/29/24 02:57 12/29/24 04:12 12/29/24 06:07 Temperature 97.9 F Pulse Rate 65 Respiratory Rate 18 16 12 Blood Pressure 127/78 Pulse Oximetry 99 Oxygen Delivery Method Room Air 12/29/24 06:29 12/29/24 08:10 Temperature 98.1 F Pulse Rate 60 71 Respiratory Rate 11 L 15 Blood Pressure 140/86 H 147/86 H Pulse Oximetry 95 99 Oxygen Delivery Method Room Air Room Air BMI result Body Mass Index 31.5 Medications Administered Discontinued Medications Generic Name Dose Route Start Last Admin Trade Name Freq PRN Reason Stop Dose Admin Hydromorphone HCl 0.5 mg 12/29/24 05:29 12/29/24 06:07 Hydromorphone Hcl 0.5 Mg/0.5 Ml Syringe IVPUSH 12/29/24 05:30 0.5 mg ONCE ONE Administration Protocol Hydromorphone HCl 0.5 mg 12/29/24 09:33 12/29/24 09:42 Hydromorphone Hcl 0.5 Mg/0.5 Ml Syringe IVPUSH 12/29/24 09:34 Not Given ONCE ONE Protocol Calcium Gluconate 2 gm in 100 mls @ 50 mls/hr 12/29/24 04:04 12/29/24 06:12 Calcium Gluconate IV 12/29/24 06:03 Infused ONCE ONE Infusion Potassium Chloride 10 meq in 100 mls @ 100 mls/hr 12/29/24 04:15 12/29/24 06:29 Potassium Chloride/H20 IV 12/29/24 08:14 Not Given Q1H CLARENCE Lactated Ringer's 1,000 mls @ 999 mls/hr 12/29/24 05:31 12/29/24 07:09 Lr IV 12/29/24 06:31 Infused .Q1H1M ONE Infusion Magnesium Sulfate 2 gm in 50 mls @ 25 mls/hr 12/29/24 05:48 12/29/24 08:19 Magnesium Sulfate/H2o IV 12/29/24 07:47 Infused ONCE ONE Infusion Iohexol 65 ml 12/29/24 06:51 12/29/24 06:51 Iohexol 350 Mg/Ml 100 Ml Infus..Btl IV 12/29/24 06:52 65 ml ONCE ONE Administration Ketorolac Tromethamine 15 mg 12/29/24 09:33 12/29/24 09:42 Ketorolac Tromethamine 15 Mg/Ml Vial IVPUSH 12/29/24 09:34 15 mg ONCE ONE Administration Morphine Sulfate 4 mg 12/29/24 04:04 12/29/24 04:12 Morphine Sulfate 4 Mg/Ml Cartridge IVPUSH 12/29/24 04:05 4 mg ONCE ONE Administration Protocol Ondansetron HCl 4 mg 12/29/24 05:29 12/29/24 06:07 Ondansetron Hcl 4 Mg/2 Ml Vial IVPUSH 12/29/24 05:30 4 mg ONCE ONE Administration Medical Decision Making Medical Decision Making MDM Narrative: Patient presents today with chief complaint of syncope. I considered multiple diagnoses of etiology including most importantly cardiac arrhythmia, seizure, subarachnoid hemorrhage, vascular catastrophe such as AAA, as well as other more common etiologies such as a vasovagal syncope and orthostasis. Broad-based work-up was initiated to evaluate etiology including head CT, EKG and chest x-rays. EKG is nonischemic. Bedside ultrasound of the bilateral flank and aorta shows a normal caliber aorta, no evidence of AAA, no hydronephrosis in either kidney. Blood work is showing significant electrolyte derangements including hypocalcemia, hypokalemia, hypomagnesemia. He also has a significantly elevated sodium and chloride level. Concern for potential error in the lab draw. We will repeat the BMP. In the meantime, electrolyte repletion has been initiated. Given additional L of LR. He reports to me that he drank plenty of fluids yesterday due to being outdoors all day long. I doubt that his hypernatremia is secondary to such profound dehydration. Kidney function is normal, even low. A being said, his CBC does not reflect dilution with a white blood cell count of 8.1 without left shift, hemoglobin of 14.5, platelets of 183. Awaiting CT results and final disposition. 6:31 AM 12/29/2024 (Dr. Jolie Garcia, ChadO.) repeat blood work does in fact show significant change in his electrolytes, consistent with an lab error in the previous/initial blood work. Holding off on further potassium administration. Calcium and magnesium have already finished being transfused. He is receiving IV fluids given his BUN to creatinine ratio in the 2nd IV draw which is substantially changed. Slightly dehydrated. This is consistent with his story of being outside all day yesterday. Chest x-ray and EKG are normal. No evidence of ischemia. Awaiting final read of head CT and chest CT. If patient is improved after fluids, I suspect he will be stable for discharge. Heart score is 2 for age and risk factors (his father was very young when he of an AL) but he is otherwise extremely low risk for major adverse cardiac event in the next 30 days. Urinalysis is clear, showing no evidence of blood. Bedside ultrasound did not show any evidence of hydronephrosis to suggest an obstructing stone either. 6:38 AM 12/29/2024 (Dr. Jolie Garcia, ChadO.) D-dimer notably elevated. Will add on CTA. 7:12 AM 12/29/2024 (Dr. Jolie Garcia, Mahi.O.) signing out to oncoming provider pending CT results and final disposition. Took over patient's case at the change of shift. At 10:00. Patient's CT scan of the head CT scan of the abdomen pelvis was read by Radiology is negative. CTA of the chest was read by Radiology as negative for PE. No evidence for kidney stone urine not infected electrolytes normal will have patient follow-up on an outpatient basis for the syncope and back pain. No evidence for abdominal aortic aneurysm patient is currently in stable condition will discharge home Differential Diagnosis Differential Diagnoses: The differential diagnosis associated with the presentation includes (As above) Admission/Observation Consideration of admission/observation: Escalation of care including admission/observation considered Lab Data MDM Lab Attestation statement: I reviewed the patient's lab results. 12/29/24 03:16 12/29/24 05:46 Labs: Lab Results 12/29/24 12/29/24 12/29/24 Range/Units 03:16 05:14 05:46 WBC 8.1 (4.8-10.8) X10*3/uL RBC 4.65 (4.60-5.80) X10*6/uL Hgb 14.5 (14.0-18.0) g/dl Hct 41.2 L (42.0-52.0) % MCV 88.6 (80.0-98.0) fL MCH 31.2 (27.0-33.0) pg MCHC 35.2 (31.0-36.0) g/dl RDW 12.8 (11.0-16.0) % Plt Count 183 (160-400) X10*3/uL MPV 9.7 (9.4-12.4) fL Immature Gran % (Auto) 0.4 (0.0-0.4) % Neut % (Auto) 58.6 (45-73) % Lymph % (Auto) 31.1 (20-40) % Armstrong % (Auto) 7.3 (2-11) % Eos % (Auto) 1.9 (0-4) % Baso % (Auto) 0.7 (0-2) % Lymph # (Auto) 2.5 (1.2-4.9) X10*3/uL Armstrong # (Auto) 0.6 (0.1-1.2) X10*3/uL Eos # (Auto) 0.2 (0.0-0.4) X10*3/uL Baso # (Auto) 0.1 (0.0-0.2) X10*3/uL Abs Immat Gran (auto) 0.03 (0.00-0.03) X10*3/uL Absolute Neuts (auto) 4.7 (2.0-8.3) x10*3/uL Absolute Nucleated RBC 0.000 (0.0-0.012) X10*3/uL Nucleated RBC % (auto) 0.0 (0.0-0.2) /100WBC D-Dimer High Sensitivty 599 NG/ML Sodium 147 H 144 (135-145) mmol/L Potassium 2.3 L* D 4.9 D (3.3-5.1) mmol/L Chloride 123 H 108 (96-108) mmol/L Carbon Dioxide 17 L 27 (22-29) mmol/L Anion Gap 9 L 14 (12-20) BUN 16 20 H (9-16) mg/dL Creatinine 0.59 0.95 (0.5-1.4) mg/dL Estim Creat Clear Calc 198.6 123.3 Estimated GFR > 60 > 60 Random Glucose 97 128 H (60-115) mg/dL Calcium 5.5 L* D 10.0 D (8.4-10.2) mg/dL Magnesium 1.3 L* (1.6-2.6) mg/dL Total Bilirubin 0.4 (0.0-1.0) mg/dL AST 19 (5-37) U/L ALT 9 (0-40) U/L Alkaline Phosphatase 34 L (39-117) U/L Total Creatine Kinase 240 H (38-174) U/L Troponin I High Sens < 2.7 (<3.5-35.0) ng/L Total Protein 4.1 L (6.5-8.0) g/dL Albumin 2.7 L (3.5-5.0) g/dL Urine Color Yellow Urine Appearance Clear Urine pH 7.0 (5.0-9.0) Ur Specific Catherine >= 1.030 H (1.005-1.025) Urine Protein Trace (Neg-Trace) mg/dL Urine Glucose (UA) Negative (Negative) mg/dL Urine Ketones Trace (Negative) mg/dL Urine Blood Negative (Negative) Urine Nitrite Negative (Negative) Ur Leukocyte Esterase Trace H (Negative) Urine RBC 0-2 (0-2) /HPF Urine WBC 0-5 (0-5) /HPF Ur Squamous Epith Cells 0-2 (0-2) /HPF Urine Bacteria None Seen (None Seen) Hyaline Casts 0-2 (0-2) /LPF Independent Interpretation I performed an independent interpretation of an: EKG and Plain X-Ray Interpretation: 6:31 AM 12/29/2024 (Dr. Jolie Garcia, D.O.) My independent interpretation of the ECG reveals normal sinus rhythm with rate of 67, normal axis, normal intervals, no ST elevations or depressions to suggest ischemic changes, no previous for comparison. 6:31 AM 12/29/2024 (Dr. Ojlie Alta, D.O.) My independent interpretation of the chest x-ray reveals no consolidations, pulmonary edema, pleural effusion, pneumothorax, obvious bony abnormalities. Scores Heart Score History: -0- slightly suspicious ECG: -0- normal Age: -1- >45 - <65 Risk factory: -1- 1 or 2 risk factors Troponin: -0- < or = normal limit Score: 2 Risk: 1.7% Discharge Plan Discharge Clinical Impression: Episode of syncope, Acute dehydration, Back pain Patient Disposition: Home, Self-Care Instructions: Liquids and Hydration for Athletes (ED), Syncope (ED) Prescriptions: New cyclobenzaprine 10 mg tablet 10 mg PO TID PRN (Reason: pain) Qty: 14 0RF ibuprofen 400 mg tablet 400 mg PO Q6H PRN (Reason: pain) Qty: 20 0RF No Action lisinopril-hydrochlorothiazide 20-12.5 mg tablet 1 tab PO DAILY 90 Days Qty: 90 3RF loratadine 10 mg tablet 10 mg PO DAILY PRN (Reason: allergy symptoms) 90 Days Qty: 90 3RF Multi Vitamin tablet 1 tab-cap PO DAILY fluticasone propionate 50 mcg/actuation spray,suspension 2 spray intranasal DAILY PRN (Reason: allergy symptoms) 30 Days Qty: 16 5RF Rx Instructions: administer into each nostril sertraline 50 mg tablet 50 mg PO DAILY 90 Days Qty: 90 1RF Referrals: Adolph Weston MD [Primary Care Provider, Internal Medicine] Print Language: Yoruba
[2024-12-29] MEDS: Potassium Chloride/H20 10 MEQ/100 ML PIGGYBACK 100 MEQ IV ×2 (04:15→05:09)
[2024-12-29 05:23] LABS: Appearance Urine Clear; Glucose Urine UA Negative (Negative); PH 7.0 (5.0-9.0); Specific Gravity - Urine >= 1.030 (1.005-1.025); UMIC TRIGGER UACC YES
[2024-12-29 05:47] LABS: Magnesium 1.3 mg/dL (1.6-2.6)
[2024-12-29 06:00] LABS: D Dimer High Sensitivity 599 NG/ML
[2024-12-29] MEDS: Lactated Ringers 1,000 ML 999 ML IV (06:08)
[2024-12-29 06:11] LABS: Anion Gap 14 (12-20); Blood Urea Nitrogen 20 mg/dL (9-16); Calcium 10.0 mg/dL (8.4-10.2); Carbon Dioxide 27 mmol/L (22-29); Chloride 108 mmol/L (96-108); Creatinine Clr Calc Pharmacy 123.3; Estimated Glomerular Filt Rate > 60; Potassium 4.9 mmol/L (3.3-5.1); Sodium 144 mmol/L (135-145)
[2024-12-29] MEDS: Magnesium Sulfate/H2O 2 GM/50 ML PIGGYBACK IV (06:14)
--- NOTE | 2024-12-29 06:26 | PC.NURSE ---
per provider, verbal order given to D/C K+ fluids.
[2024-12-29] MEDS: iohexoL 350 MG/ML 100 ML INFUS..BTL 65 ML IV (06:51)
== END 2024-12-29 10:23 | disposition home or self-care (01) ==
PROVIDERS: Emergency Provider Emergency Medicine; PCP Internal Medicine
DX: R55 Syncope and collapse (principal); E86.0 Dehydration; I10 Essential (primary) hypertension; R10.9 Unspecified abdominal pain; M54.9 Dorsalgia, unspecified
CPT/HCPCS: 36415; 70450; 71046; 71275; 74176; 80048; 80053; 81001; 82550; 83735; 84484; 85025; 85379; 93005; 96361; 96365; 96366; 96367; 96375; 99285; J0613; J1171; J1885; J2270; J2405; J3475; J3480; J7120; Q9967

== ENCOUNTER → 2024-12-29 03:06 | Outpatient (BNV) | payer BC, SELFPAY | PROVIDERS: Emergency Provider Emergency Medicine; PCP Internal Medicine; Visit Provider Internal Medicine | DX: R55 Syncope and collapse (principal) | CPT/HCPCS: 93010 ==

== ENCOUNTER → 2024-12-29 05:31 | Outpatient (BNV) | payer BC, SELFPAY | PROVIDERS: Emergency Provider Emergency Medicine; PCP Internal Medicine; Visit Provider Radiology Diagnostic Radiology | DX: R79.89 Other specified abnormal findings of blood chemistry (principal); R55 Syncope and collapse; R10.32 Left lower quadrant pain; S09.90XA Unspecified injury of head, initial encounter | CPT/HCPCS: 70450; 71046; 71275; 74176 ==